=== PATIENT | male | born 2000 | race Caucasian/White ===

== ENCOUNTER 2023-03-13 16:41 | Outpatient (OUT) | payer BC, SELFPAY ==
--- NOTE | 2023-03-13 | XR_ITS ---
The [address] [address] Patient Name: MONICA GREEN MRN: [id number] date: 2000 Sex: M Assigned Patient Location: [facility] Current Patient Location: [facility] Accession/Order Number: [id number] Exam Date: 03/13/2023 17:10 Report Date: 03/13/2023 17:34 At the request of: SHAIKH BARRY Procedure: XR femur RT 2V EXAM: XR femur RT 2V HISTORY: RIGHT D16.21 COMPARISON: None. TECHNIQUE: AP and lateral views of the right femur were obtained. FINDINGS: There is no evidence of an acute fracture or dislocation. The joint spaces are intact proximally and distally. A focal osteophyte arises from the posterior lateral aspect of the distal femoral metaphysis. No other osseous abnormality is identified. The soft tissues are intact. XR/XR femur RT 2V IMPRESSION: No acute fracture or dislocation. The joint spaces are intact. An osteophyte arises from the distal femoral metaphysis. Comparison with a previous study may be helpful in determining the chronicity of these findings. Electronically authenticated by: MARCIANO NGUYEN Date: 03/13/2023 17:34
--- NOTE | 2023-03-13 | XR_ITS ---
The [address] [address] Patient Name: MONICA GREEN MRN: [id number] date: 2000 Sex: M Assigned Patient Location: [facility] Current Patient Location: [facility] Accession/Order Number: [id number] Exam Date: 03/13/2023 17:10 Report Date: 03/13/2023 17:32 At the request of: SHAIKH BARRY Procedure: XR knee RT 3V EXAM: XR knee RT 3V HISTORY: OSTEOCHONDROMA OF RIGHT FEMUR COMPARISON: None. TECHNIQUE: 2 views of the right knee were obtained FINDINGS: There is no evidence of an acute fracture or dislocation. The joint spaces are intact. No osteochondral injury is identified. There is no evidence of a joint effusion. There is a focal osteophyte arising from the distal femoral metaphysis posterior medially, which may indicate an osteochondroma. No calcifications are seen in the soft tissues. XR/XR knee RT 3V IMPRESSION: No acute fracture or dislocation. The joint spaces are intact. An osteophyte arises from the distal femoral metaphysis, which may indicate an osteochondroma. If further evaluation is clinically indicated then perhaps a CT or MRI study of this region would be helpful. Electronically authenticated by: MARCIANO NGUYEN Date: 03/13/2023 17:32
== END 2023-03-13 16:42 | disposition home or self-care (01) ==
PROVIDERS: PCP Internal Medicine; Visit Provider Internal Medicine
DX: D16.21 Benign neoplasm of long bones of right lower limb (principal)
CPT/HCPCS: 73552; 73562

== ENCOUNTER 2024-02-17 15:45 | Outpatient (OUT) | payer OTHER, BC, SELFPAY ==
[2024-02-17 16:03] LABS: Basophils Percent Auto 0.3 % (0.2-2.0); Eosinophils Absolute Auto 0.1 10^3/uL (0.0-0.7); Eosinophils Percent Auto 1.8 % (0.9-7.0); Hematocrit 43.5 % (42.0-54.0); Hemoglobin 14.6 g/dL (14.0-18.0); Immature Granulocytes Abs Auto 0.01 10^3/uL (0.00-0.03); Immature Granulocytes Pct Auto 0.1 % (0.0-0.5); Lymphocytes Absolute Auto 2.6 10^3/uL (1.2-3.8); Lymphocytes Percent Auto 32.7 % (20.5-60.0); Mean Corpuscular HGB Conc 33.6 g/dL (29.9-35.2); Mean Corpuscular Hemoglobin 29.9 pg (25.9-34.0); Mean Corpuscular Volume 89.1 fL (80.0-94.0); Mean Platelet Volume 11.4 fL (9.5-13.5); Monocytes Absolute Auto 0.7 10^3/uL (0.3-0.8); Monocytes Percent Auto 9.4 % (1.7-12.0); Neutrophils Absolute Auto 4.4 10^3/uL (1.4-6.5); Neutrophils Percent Auto 55.7 % (43.0-75.0); Platelet Count 181 10^3/uL (150-450); Red Blood Count 4.88 10^6/uL (4.70-6.10); Red Cell Distribution Width 12.2 % (11.0-15.0); White Blood Count 7.8 10^3/uL (4.0-11.0)
[2024-02-17 16:49] LABS: Alanine Aminotransferase 32 U/L (16-63); Albumin Globulin Ratio 1.4; Albumin Level 4.2 g/dL (3.4-5.0); Alkaline Phosphatase 70 U/L (46-116); Anion Gap 11.7; Aspartate Amino Transferase 16 U/L (15-37); BUN Creatinine Ratio 14.9; Bilirubin Total 0.9 mg/dL (0.2-1.0); Chloride 102 mmol/L (98-107); Estimated GFR (African America >60 (>=60); Estimated GFR (Non-African Ame >60 (>=60); Globulin 2.9 g/dL; Glucose 101 mg/dL (74-106); Potassium 3.7 mmol/L (3.5-5.1); Sodium 139 mmol/L (136-145); Total Protein 7.1 g/dL (6.4-8.2)
[2024-02-19 14:10] LABS: Deamidated Gliadin Abs, IgA 2 units (0-19); Deamidated Gliadin Abs, IgG 2 units (0-19); Endomysial Antibody IgA Negative (Negative); Immunoglobulin A, Qn, Serum 81 mg/dL (90-386); t-Transglutaminase (tTG) IgA <2 U/mL (0-3); t-Transglutaminase (tTG) IgG <2 U/mL (0-5)
== END 2024-02-17 15:46 | disposition home or self-care (01) ==
LOC: LAB 15:45
PROVIDERS: PCP Internal Medicine; Visit Provider Internal Medicine
DX: K58.0 Irritable bowel syndrome with diarrhea (principal); R14.0 Abdominal distension (gaseous); R10.9 Unspecified abdominal pain
CPT/HCPCS: 36415; 80053; 82784; 85025; 86231; 86258; 86364

== ENCOUNTER 2024-02-25 16:35 | Outpatient (REF) | payer OTHER, BC, SELFPAY | END 2024-02-25 16:36 | disposition home or self-care (01) | LOC: LAB 16:35 | PROVIDERS: PCP Internal Medicine; Visit Provider Internal Medicine | DX: K58.0 Irritable bowel syndrome with diarrhea (principal); R14.0 Abdominal distension (gaseous); R10.9 Unspecified abdominal pain | CPT/HCPCS: 87338 ==

== ENCOUNTER 2024-03-16 19:53 | Emergency (ER) | payer OTHER, BC, SELFPAY ==
[2024-03-16 19:59] VITALS: BP 130/66; PULSE 70; TEMP 36.7; O2SAT 99; BMI 25.1
--- NOTE | 2024-03-16 20:12 | CT_ITS ---
The [address] [address] Patient Name: MONICA GREEN MRN: [id number] date: 2000 Sex: M Assigned Patient Location: ER Current Patient Location: Accession/Order Number: [id number] Exam Date: 03/16/2024 20:15 Report Date: 03/16/2024 21:35 At the request of: CHIN ODELL Procedure: CT head/brain wo/w con EXAM: CT head/brain wo/w con HISTORY: Right eye visual disturbance. TECHNIQUE: Axial CT scans through the head were obtained without and with IV administration of iodinated contrast. Dose reduction techniques were achieved by using: automated exposure control and/or adjustment of mA and /or kV according to patient size and/or use of iterative reconstruction technique. COMPARISON: None. FINDINGS: The cerebral hemispheres have normal white and saez matter and corticomedullary differentiation. To the limit of CT, the posterior fossa appears unremarkable. The ventricular system and cortical sulci are normal for the patient's age. No area of abnormal mass-effect or edema or intracranial hemorrhage. No area of pathologic contrast enhancement. The visualized orbits show no abnormality. The visualized paranasal sinuses show no air-fluid level. Mastoid air cells are clear. CT/CT head/brain wo/w con IMPRESSION: No acute intracranial process. The visualized orbits show no abnormality. Electronically authenticated by: FEMI JARRETT Date: 03/16/2024 21:35
--- NOTE | 2024-03-16 20:14 | ED.EYEPROB1 ---
HPI - Eye Problem General Chief complaint: Eye Problems Stated complaint: Visual Disturbance Time Seen by Provider: 03/16/24 20:02 Source: patient and family History of Present Illness HPI Narrative: 24-year-old male presents with his mother to the emergency department for blurred vision in his right eye only. He has had it for a week. Last night he vomited. He is not complaining of any headache or head trauma. He saw an law firm administrator today and he was told that he has some sort of growth in his eye and that he will need to see a specialist, apparently a retina specialist. This is being arranged by the law firm administrator. He also saw his PCP today. An MRI is being planned. He has no weakness or numbness in his extremities. Related Data Allergies Allergy/AdvReac Type Severity Reaction Status Date / Time No Known Drug Allergies Allergy Verified 03/16/24 20:10 Review of Systems ROS Narrative A ten point review of systems is negative except as noted above. Exam Narrative Exam Narrative: Nurses note and vital signs reviewed and patient is not hypoxic. General: The patient appears well and in no apparent distress. Patient is resting comfortably on cart. Skin: Warm, dry, no pallor noted. There is no rash noted. Head: Normocephalic, atraumatic Eye: Normal conjunctiva, no drainage the left eye appears normal. The right pupil is dilated from the law firm administrator office today. Ears, Nose, Mouth, and Throat: oral mucosa is moist. Nares patent. Cardiovascular: Regular Rate and Rhythm Respiratory: Patient is in no distress, no accessory muscle use, lungs are clear to auscultation, no wheezing, rales or rhonchi Back: non-tender GI: Soft and nontender Musculoskeletal: The patient has no evidence of calf tenderness, no pitting edema, symmetrical pulses noted bilaterally Neurological: Awake alert and oriented. Upper and lower extremity strength intact. Extraocular movements are intact. Psychiatric: Cooperative Constitutional Vital Signs, click to edit/add: Last Vital Signs Temp 98.1 F 03/16/24 19:59 Pulse 70 03/16/24 19:59 Resp 16 03/16/24 19:59 BP 130/66 03/16/24 19:59 Pulse Ox 99 03/16/24 19:59 O2 Del Method Room Air 03/16/24 19:59 Course Vital Signs Vital signs: Vital Signs Temperature 98.1 F 03/16/24 19:59 Pulse Rate 70 03/16/24 19:59 Respiratory Rate 16 03/16/24 19:59 Blood Pressure 130/66 03/16/24 19:59 Pulse Oximetry 99 03/16/24 19:59 Oxygen Delivery Method Room Air 03/16/24 19:59 Temperature 98.1 F 03/16/24 19:59 Pulse Rate 70 03/16/24 19:59 Respiratory Rate 16 03/16/24 19:59 Blood Pressure 130/66 03/16/24 19:59 Pulse Oximetry 99 03/16/24 19:59 Oxygen Delivery Method Room Air 03/16/24 19:59 MDM - Eye Problem MDM Narrative Medical decision making narrative: CT brain with and without contrast is negative. Workup will progress with MRI as ordered by PCP and he is going to be following up with the retina specialist. Findings are discussed with the patient and his mother. Differential Diagnosis Differential diagnosis: Likely other (Intracranial mass, retinal mass) Discharge Plan Discharge Stand Alone Forms: Portal Instructions Chief Complaint: Eye Problems Clinical Impression: Vision changes Patient Disposition: Home, Self-Care Time of Disposition Decision: 21:43 Condition: Good Mode of Transportation: Private Vehicle Print Language: Maldivian Instructions: Blurred Vision (ED) Additional Instructions: Follow-up with Dr. Abernathy and the video specialist Referrals: Juan Antonio Abernathy MD [Primary Care Provider] - 1 week
== END 2024-03-16 22:18 | disposition home or self-care (01) ==
PROVIDERS: Emergency Provider Emergency Medicine; PCP Family Medicine
DX: H53.8 Other visual disturbances (principal)
CPT/HCPCS: 70470; 99284; Q9967

== ENCOUNTER 2024-03-18 12:34 | Outpatient (OUT) | payer OTHER, BC, SELFPAY ==
[2024-03-18 14:08] LABS: Erythrocyte Sedimentation Rate 7 mm/hr (<=15)
[2024-03-19 04:08] LABS: Rheumatoid Factor (RF) 10.2 IU/mL (<14.0)
[2024-03-19 06:10] LABS: HIV Ab/p24 Ag Screen Non Reactive (Non Reactive)
[2024-03-19 08:13] LABS: Varicella-Zoster V Ab, IgG <135 index (Immune >165)
[2024-03-19 12:12] LABS: Rapid Plasma Reagin, Quant Non Reactive titer (NonRea<1:1)
[2024-03-19 13:13] LABS: Angiotensin-Converting Enzyme 48 U/L (14-82); Complement, Total (CH50) 48 U/mL (>41)
[2024-03-19 15:09] LABS: ANA Direct Negative (Negative)
[2024-03-20 17:09] LABS: QuantiFERON-TB Gold Plus Negative (Negative)
== END 2024-03-18 12:35 | disposition home or self-care (01) ==
LOC: LAB 12:36
PROVIDERS: PCP Family Medicine
DX: H30.93 Unspecified chorioretinal inflammation, bilateral (principal)
CPT/HCPCS: 36415; 82164; 85652; 86038; 86162; 86431; 86480; 86592; 86787; 87389

== ENCOUNTER 2024-04-23 16:33 | Outpatient (OUT) | payer OTHER, BC, SELFPAY ==
--- OUTSIDE RECORDS SUMMARY | 2024-04-23 16:39 | XMS_ITS | CCD ---
Author Organization [facility] Care Team Providers Care Return To Service Inspector Name Role Phone DR SCOTT ROMANO Admitting Yazan ROMANO, DR CSOTT [employer] Unavailable DR SCOTT RMOANO Attending Unavailable KAHLIL, DR MONICA Blake [facility] Unavailable LEIDA, DR ROXANE [employer] Unavailable JOSESITO GOVEA Consult[employer] Unavailable SHAIKH REDDY Attending Unavailable SHAIKH REDDY Attending Unavailable Paul Rodrigues, December Attending Unavailable Paul Rodrigues, December Referring Unavailable Allergies Allergy Classification Reported Allergen(s) Allergy Type Date of Onset Reaction(s) Facility (1 source) Acetaminophen / HYDROcodone Drug Allergy 04-14-2016 [facility] Problems Problem Classification Problem Date Documented Date Episodic/Chronic Allergic reactions (1 source) Dermatitis, unspecified; Translations: [DERMATITIS UNSPECIFIED] Onset: 02-08-2021 Episodic Inflammation; infection of eye (except that caused by tuberculosis or sexually transmitteddisease) (1 source) Unspecified chorioretinal inflammation, bilateral; 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 Other eye disorders (1 source) Other disorders of optic disc, bilateral; 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 Chronic Other upper respiratory infections (4 sources) Acute pharyngitis, unspecified; Translations: [ACUTE PHARYNGITIS UNSPECIFIED] Onset: 02-06-2021 Episodic Retinal detachments; defects; vascular occlusion; and retinopathy (1 source) Retinal neovascularization, unspecified, right eye; 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, right eye] 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-2024 Chronic Unclassified (1 source) CONTACT W/AND (SUSP) EXPOS COVID-19; Translations: [CONTACT W/AND (SUSP) EXPOS COVID-19] Onset: 02-08-2021 Results Test Name Value Interpretation Reference Range Facil ity CBC AUTO DIFFon 02-06-2021 BASO # 0.0 103/ul Normal 0.0-0.1 [facility] Comment on above: Performed By: #### C BC #### [facility] [address] [id number] Mandeep Ariadna Basophils/100 WBC (Bld) 0.1 % Critically low 0.2-2.0 [facility] Comment on above: Performed By: #### C BC #### [facility] [address] [place], [place] [id number] Mandeep Ariadna EO # 0.2 103/ul Normal 0.0-0.7 [facility] Comment on above: Performed By: #### C BC #### [facility] [address] [place], [place] [id number] Mandeep Ariadna Eosinophils/100 WBC (Bld) 1.3 % Normal 0.9-7.0 [facility] Comment on above: Performed By: #### C BC #### [facility] [address] [place] [address] Mandeep Ariadna Erythrocyte distribution width (RBC) [Ratio] 12.6 % Normal 11.0-15.0 [facility] Comment on above: Performed By: #### C BC #### [facility] [address] [place], [place] [id number] Mandeep Ariadna Hematocrit (Bld) [Volume fraction] 49.3 % Normal 42.0-54.0 [facility] Comment on above: Performed By: #### C BC #### [facility] [address] [place], [place] [id number] Mandeep Ariadna Hemoglobin (Bld) [Mass/Vol] 16.9 g/dL Normal 14.0-18.0 [facility] Comment on above: Performed By: #### C BC #### [facility] [address] [place], [place] [address] Mandeep Ariadna IG # 0.06 10e3/ul Critically high 0.00-0.03 [facility] Comment on above: Performed By: #### C BC #### [facility] [address] [place], [place] [address] Mandeep Ariadna IG % 0.4 % Normal 0.0-0.5 [facility] Comment on above: Performed By: #### C BC #### [facility] [address] [place], [place] [id number] Mandeepelizabeth Rosenthal LYMPH # 1.5 103/ul Normal 1.2-3.8 [facility] Comment on above: Performed By: #### C BC #### [facility] [address] [place], [place] [id number] Mandeepelizabeth Rosenthal Lymphocytes/100 WBC (Bld) 10.6 % Critically low 20.5-60.0 [facility] Comment on above: Performed By: #### C BC #### [facility] [address] [place], [place] [id number] Mandeep Rosenthal MANUAL DIFF REQ NO Normal [facility] Comment on above: Performed By: #### C BC #### [facility] [address] [place], [place] [id number] Mandeep Rosenthal MCH (RBC) [Entitic mass] 30.6 pg Normal 25.9-34.0 [facility] Comment on above: Performed By: #### C BC #### [facility] [address] [place], [place] [id number] Mandeep Rosenthal MCHC (RBC) [Mass/Vol] 34.3 g/dL Normal 29.9-35.2 [facility] Comment on above: Performed By: #### C BC #### [facility] [address] [place], [place] [id number] Mandeepelizabeth Rosenthal MCV (RBC) [Entitic vol] 89.2 fL Normal 80.0-94.0 [facility] Comment on above: Performed By: #### C BC #### [facility] [address] [place], [place] [address] Mandeep Ariadna MONO # 1.3 103/ul Critically high 0.3-0.8 [facility] Comment on above: Performed By: #### C BC #### [facility] [address] [place], [place] [address] Mandeep Ariadna Monocytes/100 WBC (Bld) 8.9 % Normal 1.7-12.0 [facility] Comment on above: Performed By: #### C BC #### [facility] [address], [place] [address] Mandeep Rosenthal NEUT # 11.1 103/ul Critically high 1.4-6.5 [facility] Comment on above: Performed By: #### C BC #### [facility] [address] [place], [place] [address] Mandeep Rosenthal Neutrophils/100 WBC (Bld) 78.7 % Critically high 43.0-75.0 [facility] Comment on above: Performed By: #### C BC #### [facility] [address] [place], [place] [address] Mandeep Rosenthal Platelet mean volume (Bld) [Entitic vol] 11.3 fL Normal 9.5-13.5 [facility] Comment on above: Performed By: #### C BC #### [facility] [address] [place], [place] [address] Mandeep Rosenthal PLT 185 103/ul Normal 150-450 [facility] Comment on above: Performed By: #### C BC #### [facility] [address] [place], [place] [address] Mandeep Rosenthal RBC 5.53 106/ul Normal 4.70-6.10 [facility] Comment on above: Performed By: #### C BC #### [facility] [address] [place], [place] [address] Mandeep Rosenthal WBC 14.1 103/ul Critically high 4.0-11.0 [facility] Comment on above: Performed By: #### C BC #### [facility] [address] [place], [place] [id number] Mandeep Rosenthal CULTURE THROATon 02-06-2021 CULTURE THROAT Culture Observations : NORMAL RESPIRATORY MERCEDES. Normal [facility] Comment on above: Performed By: #### T HRTCX, SSCRN #### [facility] [address] [place], [place] [address] Mandeep Rosenthal Covid-19 PCR (CVDTB)on 01-18 SARS-CoV-2 (COVID-19) RNA SOY+probe Ql (Unsp spec) Not detected Normal NOT DETECTED [facility] Comment on above: Result Comment: This test is not yet approved or cleared by the [place] FDA. When there are no FDA-approved or cleared tests available, and other criteria are met, FDA can make tests available under an emergency access mechanism called an Emergency Use Authorization (EUA). The EUA for this test is supported by the [place] of Health and Human Service's (HHS's) declaration that circumstances exist to justify the emergency use of in vitro diagnostics for the detection and/or diagnosis of the virus that causes COVID-19. This EUA will remain in effect (meaning this test can be used) for the duration of the COVID-19 declaration justifying emergency of IVDs, unless it is terminated or revoked by FDA (after which the test may no longer be used). When diagnostic testing is negative, the possibility of a false negative should be considered in the context of a patient's recent exposures and the presence of clinical signs and symptoms consistent with SARS-CoV-2. Performed By: #### C VDTBH #### [facility] [address] [place] [address] Mandeep Rosenthal MONOon 02-06-2021 Monocytes (Bld) [#/Vol] Negative Normal NEGATIVE [facility] Comment on above: Performed By: #### M SHARON #### [facility] [address] [place], [place] [address] Mandeep Rosenthal PROF 14(COMP METB)on 021 Albumin [Mass/Vol] 4.2 g/dL Normal 3.5-5.0 [facility] Comment on above: Performed By: #### C MP #### [facility] [address] [place], [place] [address] Mandeepelizabeth Rosenthal Albumin/Globulin [Mass ratio] 1.1 {ratio} Normal [facility] Comment on above: Performed By: #### C MP #### [facility] [address] [place], [place] [address] Mandeep Ariadna ALP [Catalytic activity/Vol] 85 U/L Normal 38-126 [facility] Comment on above: Performed By: #### C MP #### [facility] [address] [place], [place] [address] Mandeep Ariadna ALT [Catalytic activity/Vol] 24 U/L Normal 21-72 [facility] Comment on above: Performed By: #### C MP #### [facility] [address] [place] [address] Mandeep Ariadna Anion gap [Moles/Vol] 14.2 mmol/L Normal [facility] Comment on above: Performed By: #### C MP #### [facility] [address] [address] Mandeep Ariadna AST [Catalytic activity/Vol] 15 U/L Critically low 17-59 [facility] Comment on above: Performed By: #### C MP #### [facility] [address] [place] [address] Mandeep Ariadna Bilirubin [Mass/Vol] 1.1 mg/dL Normal 0.2-1.3 [facility] Comment on above: Performed By: #### C MP #### [facility] [address] [place] [address] Mandeep Ariadna Calcium [Mass/Vol] 9.7 mg/dL Normal 8.4-10.2 [facility] Comment on above: Performed By: #### C MP #### [facility] [address] [place] [address] Mandeep Ariadna Chloride [Moles/Vol] 104 mmol/L Normal 98-107 [facility] Comment on above: Performed By: #### C MP #### [facility] [address] [place] [address] Mandeep Ariadna CO2 [Moles/Vol] 25.1 mmol/L Normal 22.0-30.0 [facility] Comment on above: Performed By: #### C MP #### [facility] [address] [place], [place] [address] Mandeep Ariadna Creatinine [Mass/Vol] 1.18 mg/dL Normal 0.66-1.25 [facility] Comment on above: Performed By: #### C MP #### [facility] [address] [place], [place] [address] Mandeep Ariadna EGFR-AF NICARAGUAN >60 Normal >=60 [facility] Comment on above: Performed By: #### C MP #### [facility] [address] [place], [place] [address] Mandeep Ariadna EGFR-NON AF NICARAGUAN >60 Normal >=60 [facility] Comment on above: Performed By: #### C MP #### [facility] [address] [place], [place] [address] Mandeep Ariadna Globulin (S) [Mass/Vol] 3.8 g/dL Normal [facility] Comment on above: Performed By: #### C MP #### [facility] [address] [id number] Mandeep Ariadna Glucose [Mass/Vol] 92 mg/dL Normal 74-106 [facility] Comment on above: Performed By: #### C MP #### [facility] [address] [address] Mandeep Ariadna Potassium [Moles/Vol] 4.3 mmol/L Normal 3.4-5.0 [facility] Comment on above: Performed By: #### C MP #### [facility] [address] [id number] Mandeep Ariadna Protein [Mass/Vol] 8.0 g/dL Normal 6.1-8.2 [facility] Comment on above: Performed By: #### C MP #### [facility] [address] [place], [place] [address] Mandeep Ariadna Sodium [Moles/Vol] 139 mmol/L Normal 137-145 [facility] Comment on above: Performed By: #### C MP #### [facility] [address] [id number] Mandeep Ariadna Urea nitrogen [Mass/Vol] 14.0 mg/dL Normal 9.0-20.0 [facility] Comment on above: Performed By: #### C MP #### [facility] [address] [id number] Mandeep Ariadna Urea nitrogen/Creatinine [Mass ratio] 11.9 mg/mg Normal [facility] Comment on above: Performed By: #### C MP #### [facility] [address] [place] [address] Mandeep Rosenthal RAPID COVID-19 ANTIGENon EUA Statement SEE BELOW Normal [facility] Comment on above: Result Comment: This test has not been FDA cleared or approved, but has been authorized by the FDA under an Emergency Use Authorization (EUA) for use by authorized laboratories certified under CLIA that meet the requirements to perform moderate or high complexity testing. This test has been authorized only for the detection of proteins from SARS-CoV-2, not for any other viruses or pathogens. The emergency use of this test is authorized for the duration of the declaration that circumstances exist justifying the authorization of emergency use of in vitro diagnostic tests for detection and/or diagnosis of Covid-19 under section 564(b)(1) of the Act, 21 U.S.C. 360bbb-3(b)(1), unless the declaration is terminated or authorization is revoked sooner. Performed By: #### C VDAG #### [facility] [address] [place] [address] Mandeep Ariadna SARS-CoV-2 (COVID-19) RNA SOY+probe Ql (Unsp spec) Negative Normal NEGATIVE [facility] Comment on above: Result Comment: Nega tive results are presumptive. They do not preclude infection and should not be used as the sole basis for treatment decisions. Additional confirmatory testing by a molecular method should be considered. Performed By: #### C VDAG #### [facility] [address] [place] [address] Mandeep Rosenthal STREPT SCREENon 02-06-2021 STREP SCREEN A Negative Normal NEGATIVE [facility] Comment on above: Performed By: #### T HRTCX, SSCRN #### [facility] [address] [place] [address] Mandeep Rosenthal XR CHEST 1 Von 02-06-2021 XR CHEST 1 V EXAMINATION: XR CHES T 1 V HISTORY: COUGH COMPARISON: No relevant comparison available. FINDINGS: LUNGS: No significant pulmonary parenchymal abnormalities. VASCULATURE: No increased pulmonary vasculature. PLEURA: No pneumothorax, effusion, or pleural thickening. CARDIAC: No cardiomegaly or cardiac silhouette abnormality. MEDIASTINUM: No visible mass or adenopathy. BONES: No fracture or visible bone lesion. OTHER: Negative. IMPRESSION: 1. No acute cardiopulmonary process. Electronically authenticated by: ROXANE CASAREZ Date: 2021-02-06 08:35 Normal [facility] Encounters Encounter Date Encounter Type Care Provider Facility Start: 03-26-2024 ambulatory Facility:R[facility] Suggs Start: 03-18-2024 [facility] Start: 03-18-2024 ambulatory May [facility]ac[facility] Start: 02-17-2024 End: 02-17-2024 ambulatory SHAIKH GATITOMEGHANA Not Available Start: 12-16-2023 End: 12-16-2023 ambulatory SHAIKH BARRY Not Available Start: 02-06-2021 End: 02-06-[address] SCOTT ROMANO Facility:[facility] Procedures Date Procedure Procedure Detail Performing Clinician Start: 03-18-2024 Bevacizumab injection M ay [facility] Start: 03-18-2024 Computerized ophthal brea [facility] retina [facility] Start: 03-18-2024 Fundus Photos No Charge [facility] Start: 03-18-2024 Intravitreal njx pharmacologic agt spx Decemberr [facility] Payers Date Payer Category Payer Private Health Insurance [id number] 2022 Unknown [id number] 2019 Unknown [id number] 2001 Unknown [id number] [id number] [id number] 2001 Unknown [id number] [id number] [id number] 2001 Unknown [id number] 1971 Unknown [id number] [id number] [id number] Summary Purpose Family History No Family History Records FoundNo Family History Records FoundNo Family History Records FoundNo Family History Records Found Advance Directives No Advanced Directives Records FoundNo Advanced Directives Records FoundNo Advanced Directives Records FoundNo Advanced Directives Records Found Additional Source Comments (unrecognized sect ion and content) No Status Records FoundNo Status Records FoundNo Status Records FoundNo Status Records Found INFORMATION SOURCE (unrecogn ized section and content) DATE CREATED AUTHOR 04/14/2021 [facility] DATE CREATED AUTHOR AUTHOR'S ORGANIZ ATION 02/18/2024 [facility] EP[facility] DATE CREATED AUTHOR AUTHOR'S ORGANIZ ATION 03/22/2024 [facility] DATE CREATED AUTHOR AUTHOR'S ORGANIZ ATION 03/29/2024 [facility] FOR RECORDS PERTAINING TO PATIENTS WHO ARE OR HAVE BEEN ENROLLED IN A CHEMICAL DEPENDENCY/SUBSTANCEABUSE PROGRAM, SOME INFORMATION MAY BE OMITTED. This clinical summary was aggregated from multiple sources. Caution should be exercised in using it in the provision of clinical care. This summary normalizes information from multiple sources, and as a consequence, information in this document may materially change the coding, format and clinical context of patient data. In addition, data may be omitted in some cases. CLINICAL DECISIONS SHOULD BE BASED ON THE PRIMARY CLINICAL RECORDS. [employer] provides no warranty or guarantee of the accuracy or completeness of information in this document.
[2024-04-23 17:53] LABS: C Reactive Protein <0.50 mg/dL (<=0.50)
[2024-04-23 18:27] LABS: Erythrocyte Sedimentation Rate 16 mm/hr (<=15)
[2024-04-25 10:09] LABS: Complement C3, Serum 122 mg/dL (82-167); Complement C4, Serum 24 mg/dL (12-38)
[2024-04-28 08:11] LABS: Anti-MPO Antibodies <0.2 units (0.0-0.9); Anti-PR3 Antibodies <0.2 units (0.0-0.9); Cytoplasmic (C-ANCA) <1:20 titer (Neg:<1:20); Perinuclear (P-ANCA) <1:20 titer (Neg:<1:20)
== END 2024-04-23 16:34 | disposition home or self-care (01) ==
PROVIDERS: PCP Family Medicine; Visit Provider Internal Medicine
DX: K58.0 Irritable bowel syndrome with diarrhea (principal); D89.9 Disorder involving the immune mechanism, unspecified
CPT/HCPCS: 36415; 83516; 85652; 86037; 86140; 86160; 86698

== ENCOUNTER 2025-04-30 13:31 | Outpatient (OUT) | payer BC, SELFPAY ==
--- OUTSIDE RECORDS SUMMARY | 2025-04-30 13:46 | XMS_ITS | CCD ---
Author Organization [facility] Care Team Providers Care Retail Store Assistant Name Role Phone DR SCOTT ROMANO Admitting Yazan ROMANO, DR SCOTT De La [employer] Consult[employer] Unavailable DR SCOTT ROMANO Attending Unavailable KAHLIL, DR MONICA Blake Primary Care Unavailable LEIDA, DR ROXANE De La [employer] Consult[employer] Unavailable JOSESITO GOVEA Consulting Unavailable SHAIKH REDDY Attending Unavailable SHAIKH REDDY Attending Unavailable Paul Rodrigues, December Attending Unavailable Paul Rodrigues, December Referring Unavailable Allergies Allergy Classification Reported Allergen(s) Allergy Type Date of Onset Reaction(s) Facility (1 source) Acetaminophen / HYDROcodone Drug Allergy 04-14-2016 [facility] Repository Problems Problem Classification Problem Date Documented [...] 02-06-2021 BASO # 0.0 103/ul Normal 0.0-0.1 [facility] Comment on above: Performed By: #### C BC #### [facility] [address] [id number] Mandeep Ariadna Basophils/100 WBC (Bld) 0.1 % Critically low 0.2-2.0 [facility] Comment on above: Performed By: #### C BC #### [facility] [address] [place], [place] [id number] Mandeep Ariadna EO # 0.2 103/ul Normal 0.0-0.7 [facility] Comment on above: Performed By: #### C BC #### [facility] [address] [place], [place] [id number] Mandeep Ariadna Eosinophils/100 WBC (Bld) 1.3 % Normal 0.9-7.0 [facility] Comment on above: Performed By: #### C BC #### [facility] [address] [place] [address] Mandeep Ariadna Erythrocyte distribution width (RBC) [Ratio] 12.6 % Normal 11.0-15.0 [facility] Comment on above: Performed By: #### C BC #### [facility] [address] [place], [place] [id number] Mandeep Ariadna Hematocrit (Bld) [Volume fraction] 49.3 % Normal 42.0-54.0 [facility] Comment on above: Performed By: #### C BC #### [facility] [address] [place], [place] [id number] Mandeep Ariadna Hemoglobin (Bld) [Mass/Vol] 16.9 g/dL Normal 14.0-18.0 [facility] Comment on above: Performed By: #### C BC #### [facility] [address] [place], [place] [id number] Mandeep Ariadna IG # 0.06 10e3/ul Critically high 0.00-0.03 [facility] Comment on above: Performed By: #### C BC #### [facility] [address] [place], [place] [id number] Mandeep Ariadna IG % 0.4 % Normal 0.0-0.5 [facility] Comment on above: Performed By: #### C BC #### [facility] [address] [place], [place] [id number] Mandeepelizabeth Rosenthal LYMPH # 1.5 103/ul Normal 1.2-3.8 [facility] Comment on above: Performed By: #### C BC #### [facility] [address] [place], [place] [id number] Mandeepelizabeth Rosenthal Lymphocytes/100 WBC (Bld) 10.6 % Critically low 20.5-60.0 [facility] Comment on above: Performed By: #### C BC #### [facility] [address] [place], [place] [id number] Mandeep Rosenthal MANUAL DIFF REQ NO Normal [facility] Comment on above: Performed By: #### C BC #### [facility] [address] [place], [place] [id number] Mandeep Rosenthal MCH (RBC) [Entitic mass] 30.6 pg Normal 25.9-34.0 [facility] Comment on above: Performed By: #### C BC #### [facility] [address] [place], [place] [phone] Mnadeep Rosenthal MCHC (RBC) [Mass/Vol] 34.3 g/dL Normal 29.9-35.2 [facility] Comment on above: Performed By: #### C BC #### [facility] [address] [place], [place] [id number] Mandeepelizabeth Rosenthal MCV (RBC) [Entitic vol] 89.2 fL Normal 80.0-94.0 [facility] Comment on above: Performed By: #### C BC #### [facility] [address] [place], [place] [id number] Mandeep Ariadna MONO # 1.3 103/ul Critically high 0.3-0.8 [facility] Comment on above: Performed By: #### C BC #### [facility] [address] [place], [place] [phone] Mandeep Ariadna Monocytes/100 WBC (Bld) 8.9 % Normal 1.7-12.0 [facility] Comment on above: Performed By: #### C BC #### [facility] [address] [place], [place] [address] Mandeep Roesnthal NEUT # 11.1 103/ul Critically high 1.4-6.5 [facility] Comment on above: Performed By: #### C BC #### [facility] [address] [place], [place] [id number] Mandeep Rosenthal Neutrophils/100 WBC (Bld) 78.7 % Critically high 43.0-75.0 [facility] Comment on above: Performed By: #### C BC #### [facility] [address] [place], [place] [id number] Mandeep Rosenthal Platelet mean volume (Bld) [Entitic vol] 11.3 fL Normal 9.5-13.5 [facility] Comment on above: Performed By: #### C BC #### [facility] [address] [place], [place] [id number] Mandeep Rosenthal PLT 185 103/ul Normal 150-450 [facility] Comment on above: Performed By: #### C BC #### [facility] [address] [place], [place] [id number] Mandeep Rosenthal RBC 5.53 106/ul Normal 4.70-6.10 [facility] Comment on above: Performed By: #### C BC #### [facility] [address] [place], [place] [id number] Mandeep Rosenthal WBC 14.1 103/ul Critically high 4.0-11.0 [facility] Comment on above: Performed By: #### C BC #### [facility] [address] [place], [place] [id number] Mandeep Rosenthal CULTURE THROATon 02-06-2021 CULTURE THROAT Culture Observations : NORMAL RESPIRATORY MERCEDES. Normal [facility] Comment on above: Performed By: #### T HRTCX, SSCRN #### [facility] [address] [place], [place] [id number] Mandeep Rosenthal Covid-19 PCR (CVDTB)on 01-18 SARS-CoV-2 (COVID-19) RNA SOY+probe Ql (Unsp spec) Not detected Normal NOT DETECTED [facility] Comment on above: Result Comment: This test is not yet approved or cleared by the [place] FDA. When there are no FDA-approved or cleared tests available, and other criteria are met, FDA can make tests available under an emergency access mechanism called an Emergency Use Authorization (EUA). The EUA for this test is supported by the Scrap Drop Crane Operator of Health and Human Service's (HHS's) declaration [...] SARS-CoV-2. Performed By: #### C VDTBH #### [facility] [address] [place] [address] Mandeep Rosenthal MONOon 02-06-2021 Monocytes (Bld) [#/Vol] Negative Normal NEGATIVE [facility] Comment on above: Performed By: #### M SHARON #### [facility] [address] [place], [place] [id number] Mandeep Rosenthal PROF 14(COMP METB)on 021 Albumin [Mass/Vol] 4.2 g/dL Normal 3.5-5.0 [facility] Comment on above: Performed By: #### C MP #### [facility] [address] [place], [place] [id number] Mandeepelizabeth Rosenthal Albumin/Globulin [Mass ratio] 1.1 {ratio} Normal [facility] Comment on above: Performed By: #### C MP #### [facility] [address] [place], [place] [phone] Mandeep Ariadna ALP [Catalytic activity/Vol] 85 U/L Normal 38-126 [facility] Comment on above: Performed By: #### C MP #### [facility] [address] [place], [place] [id number] Mandeep Ariadna ALT [Catalytic activity/Vol] 24 U/L Normal 21-72 [facility] Comment on above: Performed By: #### C MP #### [facility] [address] [place] [address] Mandeep Ariadna Anion gap [Moles/Vol] 14.2 mmol/L Normal [facility] Comment on above: Performed By: #### C MP #### [facility] [address] [address] Mandeep Ariadna AST [Catalytic activity/Vol] 15 U/L Critically low 17-59 [facility] Comment on above: Performed By: #### C MP #### [facility] [address] [place] [address] Mandeep Ariadna Bilirubin [Mass/Vol] 1.1 mg/dL Normal 0.2-1.3 [facility] Comment on above: Performed By: #### C MP #### [facility] [address] [place] [address] Mandeep Ariadna Calcium [Mass/Vol] 9.7 mg/dL Normal 8.4-10.2 [facility] Comment on above: Performed By: #### C MP #### [facility] [address] [place] [address] Mandeep Ariadna Chloride [Moles/Vol] 104 mmol/L Normal 98-107 [facility] Comment on above: Performed By: #### C MP #### [facility] [address] [place] [address] Mandeep Ariadna CO2 [Moles/Vol] 25.1 mmol/L Normal 22.0-30.0 [facility] Comment on above: Performed By: #### C MP #### [facility] [address] [place], [place] [address] Mandeep Ariadna Creatinine [Mass/Vol] 1.18 mg/dL Normal 0.66-1.25 [facility] Comment on above: Performed By: #### C MP #### [facility] [address] [place], [place] [address] Mandeep Ariadna EGFR-AF TURKISH >60 Normal >=60 [facility] Comment on above: Performed By: #### C MP #### [facility] [address] [place], [place] [address] Mandeep Ariadna EGFR-NON AF TURKISH >60 Normal >=60 [facility] Comment on above: Performed By: #### C MP #### [facility] [address] [place], [place] [address] Mandeep Ariadna Globulin (S) [Mass/Vol] 3.8 g/dL Normal [facility] Comment on above: Performed By: #### C MP #### [facility] [address] [id number] Mandeep Ariadna Glucose [Mass/Vol] 92 mg/dL Normal 74-106 [facility] Comment on above: Performed By: #### C MP #### [facility] [address] [address] Mandeep Ariadna Potassium [Moles/Vol] 4.3 mmol/L Normal 3.4-5.0 [facility] Comment on above: Performed By: #### C MP #### [facility] [address] [id number] Mandeep Ariadna Protein [Mass/Vol] 8.0 g/dL Normal 6.1-8.2 [facility] Comment on above: Performed By: #### C MP #### [facility] [address] [place], [place] [address] Mandeep Ariadna Sodium [Moles/Vol] 139 mmol/L Normal 137-145 [facility] Comment on above: Performed By: #### C MP #### [facility] [address] [id number] Mandeep Ariadna Urea nitrogen [Mass/Vol] 14.0 mg/dL Normal 9.0-20.0 [facility] Comment on above: Performed By: #### C MP #### [facility] [address] [id number] Mandeep Ariadna Urea nitrogen/Creatinine [Mass ratio] 11.9 mg/mg Normal [facility] Comment on above: Performed By: #### C MP #### [facility] [address] [place] [address] Mandeep Rosenthal RAPID COVID-19 ANTIGENon EUA Statement SEE BELOW Normal [facility] Comment on above: Result Comment: This [...] sooner. Performed By: #### C VDAG #### [facility] [address] [place] [address] Mandeep Ariadna SARS-CoV-2 (COVID-19) RNA SOY+probe Ql (Unsp spec) Negative Normal NEGATIVE [facility] Comment on above: Result Comment: Nega tive results are presumptive. They do not preclude infection and should not be used as the sole basis for treatment decisions. Additional confirmatory testing by a molecular method should be considered. Performed By: #### C VDAG #### [facility] [address] [place] [address] Mandeep Rosenthal STREPT SCREENon 02-06-2021 STREP SCREEN A Negative Normal NEGATIVE [facility] Comment on above: Performed By: #### T HRTCX, SSCRN #### [facility] [address] [place] [address] Mandeep Rosenthal XR CHEST 1 Von 02-06-2021 [...] by: ROXANE CASAREZ Date: 2021-02-06 08:35 Normal [facility] Encounters Encounter Date Encounter Type Care Provider Facility Start: 03-26-2024 ambulatory Facility:Robe Suggs Start: 03-18-2024 Office outpatient ne w 45 minutes [facility] Start: 03-18-[address] [facility] Start: 02-17-2024 End: 02-17-2024 ambulatory SHAIKH GATITOMEGHANA Not Available Start: 12-16-2023 End: 12-16-2023 ambulatory SHAIKH BARRY Not Available Start: 02-06-2021 End: 02-06-[address] SCOTT ROMANO Facility:[facility]1 Procedures Date Procedure Procedure Detail Performing Clinician Start: 03-18-2024 Bevacizumab injection M ay [facility] Start: 03-18-2024 Computerized ophthal brea imaging retina [facility] Start: 03-18-2024 Fundus Photos No Charge [facility] Start: 03-18-2024 [facility]real n[facility]x [facility] Payers Date Payer Category Payer Private Health Insurance [id number] 2022 Unknown [id number] 2019 Unknown [id number] 2001 Unknown [id number] [id number] 2001 Unknown [id number] [id number] [id number] 2001 Unknown [id number] 1971 Unknown [id number] [id number] [id number] Summary Purpose Family History No Family History [...] DATE CREATED AUTHOR AUTHOR'S ORGANIZ ATION 02/18/2024 [facility] EPIC DATE CREATED AUTHOR AUTHOR'S ORGANIZ ATION 03/22/2024 [facility] DATE CREATED AUTHOR AUTHOR'S ORGANIZ ATION 03/29/2024 [facility] FOR RECORDS PERTAINING TO PATIENTS WHO ARE [...] BE BASED ON THE PRIMARY CLINICAL RECORDS. [employer] provides no warranty or guarantee of the accuracy or completeness of information in this document.
== END 2025-04-30 13:32 | disposition home or self-care (01) ==
LOC: LAB 13:36
PROVIDERS: PCP Family Medicine; Visit Provider Family Medicine
DX: H30.91 Unspecified chorioretinal inflammation, right eye (principal)
CPT/HCPCS: 36415; 83090

== ENCOUNTER 2025-06-23 12:59 | Outpatient (OUT) | payer BC, SELFPAY ==
--- OUTSIDE RECORDS SUMMARY | 2025-06-18 12:45 | XMS_ITS | Encounter Summary ---
Author Organization [facility] Address [address] [place] [address] Care Team Providers Care Musical Instruments Assembler Name Role Phone Unavailable Primary Care Provider Unavailabl e Source Comments In the event this information is protected by the Federal Confidentiality of Alcohol and Drug AbusePatient Records regulations: The Federal rules restrict any use of the information to criminally investigate or prosecute any alcohol or drug abuse patient.[facility] Reason for Referral * MRI/CT (Routine) - New RequestSpecialtyDiagnoses / ProceduresReferred By ContactReferred To ContactCT IMAGING Diagnoses Choroiditis of both eyes Procedures CT CHEST WO IVCON DIAGNOSTIC COMPUTED TOMOGRAPHY THORAX W/O CNTRST Yu Spencer MD [address] [place] [address] Phone: tel: fax: [facility] [place] [address] Referral IDStatusReasonStart DateExpiration DateVisits RequestedVisits [id number] Request Auto-Generated Referral / Reason for Visit * [id number] opinion for uveitisbilateral posterior uveitis Encounter Details DateTypeDepartmentCare Team (Latest Contact Info)Nxljssxaksw54/31/2025 1:45 PM EDTOffice Visit [facility] [address] [place] [address] Yu Spencer MD [address] [place], [place] [phone] [facility] [address] [address] Choroiditis of both eyes (Primary Dx) Social History Tobacco UseTypesPacks/DayYears UsedDateSmoking Tobacco: FormerCigarettes Smokeless Tobacco: FormerArea Deprivation IndexAnswerDate RecordedNational Score (1-100), lower number is lower kjia132206/18/2025State Score (1-10), lower number is lower [id number] from: https://www.neighborhoodatlas.[facility].edu/. Last address used for ukp[address]nxrxkc[address]/[place]/[address]Sex and Gender InformationValueDate RecordedSex Assigned at BirthNot on fileLegal ZmyGsog4804/06/2025 10:43 AM EDT Gender IdentityNot on fileSexual OrientationNot on filedocumented as of this encounter Patient Instructions * Patient Instructions* Daisy Darling RN - 06/18/2025 4:50 PM EDT Dry Eye Systane Refresh Optive Blink and Soothe XP Please use a Preservative Free Artificial tears 4 times daily and as needed. Available [id number] Use up to four times daily for Dry, Scratchy, or Gritty foreign body sensations in the eye. Additional drop may be used before any prolonged work on computers, reading, or for hobbies such asneedle point, etc. If you are using artificial tears more than six times daily, then use Preservative Free Artificial Tears. The box will state preservative free and they will be in individual tubes with a twist off tops before drop insertion. Avoid using Visine and any other get the red out as this can eventually dry the eyes and make thesymptoms worse. To schedule the Chest CT imaging order see the number listed below: CT appointment [phone] documented in this encounter Progress Notes * Daisy Darling RN - 06/18/2025 1:45 PM EDT HPI: Referred by [facility] Course: - Noticed blurry vision OD March of 2024. No other symptoms -Seen by retina specialist [place] then transferred care to [facility] Dr. [place]. Tried extending to Q8 weeks but worsened -Vision improved with RYDER, no new symptoms on presentation ROS: - POSITIVE: Intermittent episodes of significant abdominal bloating and belching, rash (Petechial rash lower leg during episode of bloating 2019), tattoos . 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 #. 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 No inflammation. FA with staining/ mild leakage of the lesions OU. FAF suggestive of activity OS. OCTA with flow. 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 Work up: - Negative/wnl from Outside lab: ANti MPO ab, Anti PR3 ab, c-ANCA, P-ANCA, CRP, Syphilis, RF, CARMEN, HIV, VZB IgG (serum), AMERICA, TB, toxo IGM -Positive from outside lab ESR 16 (reference is <15), Histopl yeast 1:8 (H) 04/23/24 #. Prior/current immunosuppression: - None PLAN: CT-chest After CT-chest, planning oral prednisone Eylea Q4-6 weeks OU F/U: ~ 3 weeks NEXT: DILATE, OCT both eyes, AUTOLFUGORESCNE OU I have confirmed and edited as necessary the relevant ophthalmic history, ROS, and the neuro exam findings as obtained by others. I have seen and examined this patient. I have discussed the case and the management of this patient's care with the Resident and/or fellowif applicable. I also have reviewed and agree with the assessment and plan as stated above and agree with all of its relevant components. Yu Spencer MD, PhD Vitreoretinal Surgery & Ocular Inflammatory Diseases [facility] documented in this encounter Plan of Treatment DateTypeDepartmentCare Team (Latest Contact Info)Kgxmgkknhso75/21/2025 8:00 AM ESTOffice Visit [facility] [address] [address] Yu Spencer MD [address] [place], [place] [phone] [facility] [address] [address] Return in about 3 weeks (around 07/09/2025) for DILATe OU, OCT OU, FA/ICG OU transit OD.NameTypePriorityAssociated DiagnosesOrder ScheduleSYPHILIS TREPONEMAL W/REFLEXLabRoutine Choroiditis of both eyes Expected: 06/18/2025, Expires: 09/17/2025T CHEST WO IVCONRadiologyRoutine Choroiditis of both eyes 1 Occurrences starting 06/18/2025 until 07/18/2026OCT MACULA CIRRUS OU (BOTH EYES)OPHT ImagingRoutine Choroiditis of both eyes 1 Occurrences starting 06/18/2025 until 12/10/2026FUNDUS AUTOFLUORESCENCE PHOTO (FAF) OU (BOTH EYES)OPHT ImagingRoutine Choroiditis of both eyes 1 Occurrences starting 06/18/2025 until 12/10/2026documented as of this encounter Procedures Procedure NamePriorityDate/TimeAssociated DiagnosisCommentsFA/ICG ANGIOGRAPHY OU(BOTH EYES),TRANSIT OD(RIGHT EYE)Vwfgact0906/18/2025 3:05 PM EDT Choroiditis of both eyes OCT MACULA CIRRUS OU (BOTH EYES)Srcwqim1906/18/2025 3:03 PM EDT Choroiditis of both eyes OCT ANGIOGRAPHY OU (BOTH EYES)Vahcakc1106/18/2025 3:03 PM EDT Choroiditis of both eyes documented in this encounter Results * FA/ICG ANGIOGRAPHY OU(BOTH EYES),TRANSIT OD(RIGHT EYE) (06/18/2025 3:05 PM EDT)Anatomical RegionLateralityModalityOther Narrative 06/18/2025 4:45 PM EDT Date of Procedure 06/18/2025 Heating Mechanic Information Tinsmith Apprentice: ABHILASH Start time: 2:26 PM Stop time: 3:03 PM 24 gauge angiocath inserted into left antecubital vein. 2 cc's ICG dye injected followed by 2.5 cc's 10% NaCl. No complications. Catheter removed, intact. Patient tolerated. Melany Oneil RN 06/18/2025 2:46 PM Gain tuned all the way up and still did not see dye until late in ICG . Interpretation Right Eye Findings include Leakage. Hypocyanesence. Left Eye Findings include Leakage. Hypocyanesence. Notes Lesions with some leakage RE Lesions with mild leakage/staining LE Authorizing ProviderResult TypeResult StatusPhoekelly Spencer MDOPHTHALMOLOGYFinal Result * OCT MACULA CIRRUS OU (BOTH EYES) (06/18/2025 3:03 PM EDT)Anatomical Region LateralityModalityOther Narrative 06/18/2025 4:46 PM EDT Date of Procedure 06/18/2025 Heating Mechanic Information Tinsmith Apprentice: ABHILASH Start time: 2:26 PM Stop time: 3:03 PM OCT Macula Interpretation Right Eye Findings include PED, RPE Irregularity; Negative for Intraretinal fluid, Subretinal fluid. Left Eye Findings include PED, Ellipsoid Zone Loss, RPE Irregularity; Negative for Intraretinal fluid, Subretinal fluid. Interval Change Right Eye Initial Left Eye Initial Authorizing ProviderResult TypeResult Manuela Spencer MDOPHTHALMOLOGYFinal Result * OCT ANGIOGRAPHY OU (BOTH EYES) (06/18/2025 3:03 PM EDT)Anatomical Region LateralityModalityOther Narrative 06/18/2025 4:45 PM EDT Date of Procedure 06/18/2025 Heating Mechanic Information Tinsmith Apprentice: ABHILASH Start time: 2:26 PM Stop time: 3:03 PM Interpretation Right Eye Findings include CNV. Left Eye Findings include CNV. Authorizing ProviderResult TypeResimmanuel Spencer MDOPHTHALMOLOGYFinal Result documented in this encounter Visit Diagnoses Diagnosis Choroiditis of both eyes- Primary documented in this encounter Administered Medications Medication OrderMAR ActionAction DateDoseRateSite fluorescein 250 mg injection 250 mg, INTRAVENOUS, ONCE, 1 dose, On Sat06/18/25 at 1430, [facility] MED ORDERS Indications:Choroiditis of both zvxpAeflj24/31/2025 2:46 PM CKE221 mgIV indocyanine green 25 mg injection (IC GREEN) 25 mg, INTRAVENOUS, ONCE, 1 dose, On Sat06/18/25 at 1430, [facility] MED ORDERS Indications:Choroiditis of both axhvYyqug25/31/2025 2:46 PM EDT25 mgIVdocumented in this encounter
--- OUTSIDE RECORDS SUMMARY | 2025-06-23 13:01 | XMS_ITS | Encounter Summary ---
Author Organization [facility] Address [address] [place] [address] Care Team Providers Care Sludge Control Operator Name Role Phone Unavailable Primary Care Provider Unavailabl e Source Comments In the event this information is protected by the Federal Confidentiality of Alcohol and Drug AbusePatient Records regulations: The Federal rules restrict any use of the information to criminally investigate or prosecute any alcohol or drug abuse patient.[facility] Encounter Details DateTypeDepartmentCare Team (Latest Contact Info)Dysvaqirbey34/04/2025 Get Medical Advice Ophthalmology [address] [place] [id number] Yu Spencer MD [address] [place] [address] Swapnil Weeks testing Social History Tobacco UseTypesPacks/DayYears UsedDateSmoking Tobacco: FormerCigarettes Smokeless Tobacco: FormerArea Deprivation IndexAnswerDate RecordedNational Score (1-100), lower number is lower aomt347406/18/2025State Score (1-10), lower number is lower lzpu626Data from: https://www.neighborhoodatlas.medicine.[facility].edu/. Last address used for [address] [facility]06/18/2025Sex and Gender InformationValueDate RecordedSex Assigned at BirthNot on fileLegal RwgKzge7904/06/2025 10:43 AM EDT Gender IdentityNot on fileSexual OrientationNot on filedocumented as of this encounter Miscellaneous Notes * Telephone Encounter - Edda Brush - 06/22/2025 4:09 PM EST Images from the original note were not included. LV: 06/18/25 FV: 07/09/25 Swapnil Rodríguez [facility] (supporting Yu Spencer MD)8 hours ago (7:23 AM) TB and syphilis test ordered. These tests were done and were negative last year when symptoms started. Do you want these repeated? Daisy Darling RN filed at 06/18/2025 6:29 PM Status: Signed Expand All Collapse All MD HPI: Referred by [facility] Course: - Noticed blurry vision OD March of 2024. No other symptoms -Seen by retina specialist in [place] then transferred [facility] Dr. Bay. Tried extending to Q8 weeks but worsened -Vision improved with RYDER, no new symptoms on presentation ROS: - POSITIVE: Intermittent episodes of significant abdominal bloating and belching, rash (Petechial rash lower leg during episode of bloating 2019), tattoos . 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 #. [...] PhD Vitreoretinal Surgery & Ocular Inflammatory Diseases [facility] documented in this encounter Plan of Treatment DateTypeDepartmentCare Team (Latest Contact Info)Bpntrmrmqxl51/21/2025 8:00 AM ESTOffice Visit OPHT Ophthalmology [address] [address] Yu Spencer MD [address] [place] [address] Diagnostics, [facility] [address] [address] Return in about 3 weeks (around 07/09/2025) for DILATe OU, OCT OU, FA/ICG OU transit OD.documented as of this encounter Visit Diagnoses Not on filedocumented in this encounter
--- OUTSIDE RECORDS SUMMARY | 2025-06-23 13:01 | XMS_ITS | Patient Health Record ---
Author Organization [facility] in [place] Address [address] [place] [address] Care Team Providers Care Weld Technician Name Role Phone Carlos Abernathy [phone] Results Component Value Reference Range Notes Homocyst(e)ine Reviewed date:05/02/2025 01:07:23 PM Interpretation: Performing Lab: Notes/Report: [facility] Homocyst(e)ine 13.3 0.0-14.5 umol/L Performed at: - [facility] [address] [id number] Marketing Underwriter: Buddy Castellano PhD, Phone: [phone] Performing Lab: see note LC - [facility] LB Reason For Referral No Information Problems Problem Type SNOMED Code ICD Code Onset Dates Problem Status W/U Status Risk Notes Problem 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, 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) ActiveconfirmedProblemVisual disturbance (76101336)Vision changes (H53.9)Active confirmedProblemIntracranial mass (27426991)Intracranial mass (R90.0)Active confirmedProblemChorioretinitis (71646414)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)ActiveconfirmedProblemChorditis (60514158)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 confirmed Encounters Encounter Location Date Provider Diagnosis [facility] [address] [place] [address] 04/27/2025 Carlos Abernathy Chorioretinal inflammation of right eye H30.91 Assessments Encounter Date Diagnosis (ICD Code) Assessment Notes Treatment Notes Treatment Clinical Notes Section Notes 04/27/2025 Chorioretinal inflammation of ri ght eye (ICD-10 - H30.91) Plan Of Treatment Pending Test Test Name Order Date MRI Brain w/wo contrast * 03/16/2024 HOMOCYSTEINE 04/27/2025 MRI BRAIN WO CON 03/16/2024 MRI ORBIT WO W CON 03/16/2024 Insurance Providers Payer Name Payer Address Payer Phone Subscriber Number Group Number Insured Name Patient Relationship to Insured Coverage Start Date Coverage End Date [employer] NICOL [address] [place] [address] [id number] Heather Weekself - patient is the insured[address] [place], [place] [phone], NicoleNatural Child - Insured has Financial Responsibility
--- OUTSIDE RECORDS SUMMARY | 2025-06-23 13:01 | XMS_ITS | Clinical Summary ---
Author Organization [facility] Address [address] [place] [address] Care Team Providers Care Coin Box Collector Name Role Phone Sterling, Miranda REAL ESTATE SALESPERSON Unavailable [phone] Pa Vickers MD Primary Care Provider [phone] Allergies Active AllergyReactionsCriticalityNoted DateCommentsHydrocodone-Acetaminophen Hives05/29/20238754Qfumljvc18/11/2023 Other Reaction(s): hives Medications No known medications Active Problems ProblemNoted DateDiagnosed KcngNjshgcrgc76/09/2025Intracranial mass11/25/2024 Visual mfwvirbddgv23/09/2025Macular ecwiwoeofgvk06/09/2025ipolar 2 disorder 12/16/2023 Assessment & Plan (12/16/2023 6:02 PM EDT): Was previously on Wellbutrin. Not using it anymore. Symptoms controlled w/o meds. Attention deficit hyperactivity disorder (ADHD), predominantly inattentive type 12/16/2023 Assessment & Plan (12/16/2023 6:02 PM EDT): Was previously on Wellbutrin. Not using it anymore. Symptoms controlled w/o meds. Abdominal bloating with jkdzva0412/16/2023 Assessment & Plan (02/17/2024 5:44 PM EDT): Abdominal pain and bloating, symptoms resolve with BM. Associated diarrhea. Improved a little with rifaximin. Irritable bowel syndrome with ujoptlin04/29/2024 Assessment & Plan (02/17/2024 5:43 PM EDT): Reports abdominal cramping, bloating, urgency and diarrhea. No food trigger. Excessive bloating andgas noted. Symptoms ongoing for 6 months. Abdominal pain and bloating usually improve with bowel movement. Likely IBS with diarrhea and or Small bowel bacterial overgrowth. Was prescribed Rifaximin that helped a little with his symptoms but they recurred within a week or so. Patient had asked for a referral to GI previously but has a long wait time to see them. Will order Dicyclomine for the patient. Can use Rifaxmin again as it helped previously. Discussed dietary modifications with IBS. Assessment & Plan (12/16/2023 6:05 PM EDT): Reports abdominal cramping, bloating, urgency and diarrhea. No food trigger. Excessive bloating andgas noted. Symptoms ongoing for 6 months. Abdominal pain and bloating usually improve with bowel movement. Likely IBS with diarrhea and or Small bowel bacterial overgrowth. Discussed with patient. Educated him on the importance of maintaining food diary. Recommended decreasing dairy and gas forming food. Will start patent on Rifaximin. Patient counseled and educated on adverse effects, drug interactions and to reach out to office/pharmacy if questions or concerns related to new medications. Immunizations ImmunizationAdministration DatesNext DueDTaP, Aukxizqohvq57/05/2007,06/26/2002, 2001,2001,2001Hep B, Adolescent or Vhraceisc61/03/2002, 2001,2001HiB, ufgtemiegyr99/08/2002,2001IPV08/23/2006, 2001,2001,2001MMR08/23/2006,06/26/2002Meningococcal MCV4O 03/16/2019Meningococcal PMA2X8507/09/2013Pfizer Purple Cap SARS-CoV-2 Vaccination 08/08/2021,1Pneumococcal Conjugate PCV 7002/20/2002,2001, 2001Tdap109/08/20129208Hdeubxbzr54/05/2002 Family History Medical HistoryRelationNameCommentsCancerMaternal GrandfatherSteve RansomeMM DiabetesMaternal GrandfatherSteve RansomeRelationNameStatusCommentsFatherAlive Maternal GrandfatherSteve RansomeMaternal GrandmotherAliveMotherAlive Social History Tobacco UseTypesPacks/DayYears UsedDateSmoking Tobacco: NeverPassive Smoke Exposure: NeverSmokeless Tobacco: Never Tobacco Cessation:Counseling Given: No Alcohol UseStandard Drinks/XznoKsoaseaiDyb95 (1 standard drink = 0.6 oz pure alcohol)WEEKENDSPHQ-2AnswerDate RecordedPatient Health Questionnaire-2 Score0 02/17/2024Sex and Gender InformationValueDate RecordedSex Assigned at BirthNot on fileLegal WxjBgit3910/31/2022 7:05 PM EDTGender IdentityNot on fileSexual OrientationNot on file Last Filed Vital Signs Vital SignReadingTime TakenCommentsBlood Tirkdhgf043/8407 5:39 PM EDT Irlyo563402/17/2024 5:39 PM EDT98% W9Hykykdskbrh70.4 ??C (97.5 ??F)02/17/2024 5:39 PM EDTRespiratory Rate--Oxygen Saturation--Inhaled Oxygen Concentration--Weight 75.8 kg (167 lb)02/17/2024 5:39 PM UOWQaleyp676.8 cm (5' 10 )02/17/2024 5:39 PM EDTBody Mass Index23.9602/17/2024 5:39 PM EDT Plan of Treatment Not on file Insurance [facility] Address: [facility] [id number] [place] [address] * Guarantor: Gael Weeks TypeRelation to PatientDate of BirthPhone Billing AddressPersonal/FazuitWxqw[address] [place] [address] Care Teams Team MemberRelationshipSpecialtyStart DateEnd Date Pa Vickers MD PCP - GeneralFamily Azwrlxjb69/19/24 Miranda Sterling NP Nurse PractitionerFamily Eoxfeysx01/16/24
--- OUTSIDE RECORDS SUMMARY | 2025-06-23 13:01 | XMS_ITS | Clinical Summary ---
[facility] Address [id number] [place] [address] Care Team Providers Care Meter Shop Supervisor Name Role Phone Unavailable Primary Care Provider Unavailabl e Social History Tobacco UseTypesPacks/DayYears UsedDateSmoking Tobacco: Never AssessedChildcare AnswerDate QogmcxewVdeohamrkQeuckjq49/06/2019EmploymentAnswerDate Recorded EgrfsycjmiYdrzobj50/06/2019Purpose - LifeAnswerDate RecordedPurpose and direction in ojwpRwrsksd54/10/2021Sex and Gender InformationValueDate Recorded Sex Assigned at BirthNot on fileLegal VztPiqa4803/22/2015 6:03 PM EDTGender IdentityNot on fileSexual OrientationNot on file Plan of Treatment Health MaintenanceDue DateLast DoneCommentsDepression Nstwfxkou94/18/2013Tobacco Csviduwea27/18/2013dult BMI Rewozosdl80/18/2019DTaP,Tdap and Td Vaccines (1 - Tdap)02/04/2020Influenza Vzekunz7204/19/2025 Medical Devices Not on file
--- OUTSIDE RECORDS SUMMARY | 2025-06-23 13:01 | XMS_ITS | Encounter Summary ---
Author Organization [facility] Address [address] [place] [address] Care Team Providers Care Optical Engineering Technician Name Role Phone Unavailable Primary Care Provider Unavailabl e Source Comments In the event this information is protected by the Federal Confidentiality of Alcohol and Drug AbusePatient Records regulations: The Federal rules restrict any use of the information to criminally investigate or prosecute any alcohol or drug abuse patient.[facility] Encounter Details DateTypeDepartmentCare Team (Latest Contact Info)Qxbhqkfomod10/31/2025Travel Social History Tobacco UseTypesPacks/DayYears UsedDateSmoking Tobacco: FormerCigarettes Smokeless Tobacco: FormerArea Deprivation IndexAnswerDate RecordedNational Score (1-100), lower number is lower hvkj132006/18/2025State Score (1-10), lower number is lower wcut623Data from: https://www.neighborhoodatlas.medicine.[facility].edu/. Last address used for [address] [facility]06/18/2025Sex and Gender InformationValueDate RecordedSex Assigned at BirthNot on fileLegal HciTujz5104/06/2025 10:43 AM EDT Gender IdentityNot on fileSexual OrientationNot on filedocumented as of this encounter Plan of Treatment DateTypeDepartmentCare Team (Latest Contact Info)Bmoswcjganq13/21/2025 8:00 AM ESTOffice Visit OPHT Ophthalmology [address] [place] [address] Yu Spencer MD [address] [place] [address] Diagnostics, [facility] [address] [facility] [address], [place] [address] Return in about 3 weeks (around 07/09/2025) for DILATe OU, OCT OU, FA/ICG OU transit OD.documented as of this encounter Visit Diagnoses Not on filedocumented in this encounter
--- OUTSIDE RECORDS SUMMARY | 2025-06-23 13:01 | XMS_ITS | Patient Health Record ---
Author Organization [facility] Address [address] [place] [address] Care Team Providers Care Service Worker Helper Name Role Phone Maria Luisa Richardson Primary Care Provider Reason For Referral No Information Problems Problem Type SNOMED Code ICD Code Onset Dates Problem Status W/U Status Risk Notes Problem Mixed anxiety and de pressive disorder (134085058) Depression with anxiety (F41.8) Activeconfirmed Plan Of Treatment No Information Insurance Providers Payer Name Payer Address Payer Phone Subscriber Number Group Number Insured Name Patient Relationship to Insured Coverage Start Date Coverage End Date ANTHEM Primary [address] [place] [address] [id number] Child - Insured has Financial Responsibility 3
--- OUTSIDE RECORDS SUMMARY | 2025-06-23 13:01 | XMS_ITS | Clinical Summary ---
Author Organization [facility] Address [address] [place] [address] Care Team Providers Care Cutting Table Operator First Name Role Phone Unavailable Primary Care Provider Unavailabl e Allergies Active AllergyReactionsCriticalityNoted DateCommentsHydrocodone-Acetaminophen Hives05/29/20233471WpjgyhovPvsj58/11/2023 Other Reaction(s): hives Medications Hospital, Clinic, or Other Facility Administered MedicationOrdered DoseRoute FrequencyStart DateEnd DateStatus fluorescein-benoxinate 0.3-0.4 % 1 drop (FLURESS) Indications:Choroiditis of both eyes1 dropOUAS WRYNDXTP31Ended proparacaine 0.5 % 1 drop (ALCAINE) Indications:Choroiditis of both eyes1 dropOUAS NCGAHDZI40Ended tropicamide 1 % 1 drop (MYDRIACYL) Indications:Choroiditis of both eyes1 dropOUAS DKFDJQGF33Ended PHENYLephrine 2.5 % 1 drop (AK-DILATE, FREDDY-SYNEPHRINE) Indications:Choroiditis of both eyes1 dropOUAS RYANNUEG61/08/2024Ended fluorescein 250 mg injection Indications:Choroiditis of both jske739 tzGNKWAQ24Ended indocyanine green 25 mg injection (IC GREEN) Indications:Choroiditis of both eyes25 ugBWZILE80Ended diphenhydrAMINE 12.5-50 mg oral liquid (BENADRYL) Indications:Choroiditis of both eyes12.5 - 50 mgPOAS GFPVRM40/2025 Ended Active Problems ProblemNoted DateDiagnosed DateChoroiditis of both eyes06/17/2025 Encounters DateTypeDepartmentCare PnfqUqwefzhxkih76/04/2025 Get Medical Advice Ophthalmology [address] [address] Yu Spencer MD Dererobert Dyesara avimybw5806/18/2025 1:45 PM EDTOffice Visit OPHT Ophthalmology [address] [address] Yu Spencer MD Diagnostics, [facility] Tech And Choroiditis of both eyes (Primary Dx)06/18/2025Travelfrom Last 3 Months Family History Medical HistoryRelationCommentsGlaucomaMaternal GrandfatherRelationStatus CommentsMaternal Grandfather Social History Tobacco UseTypesPacks/DayYears UsedDateSmoking Tobacco: FormerCigarettes Smokeless Tobacco: FormerArea Deprivation IndexAnswerDate RecordedNational Score (1-100), lower number is lower pfjp149106/18/2025State Score (1-10), lower number is lower utvh359Data from: https://www.neighborhoodatlas.medicine.[facility].edu/. Last address used for [address]06/18/2025Sex and Gender InformationValueDate RecordedSex Assigned at BirthNot on fileLegal RezWvys4804/06/2025 10:43 AM EDT Gender IdentityNot on fileSexual OrientationNot on file Plan of Treatment DateTypeDepartmentCare Team (Latest Contact Info)Gmswnpgsooa89/21/2025 8:00 AM ESTOffice Visit OPHT Ophthalmology [address] [address] Yu Spencer MD [address] [place] [address] Diagnostics, [facility] [address] [address] Return in about 3 weeks (around 07/09/2025) for DILATe OU, OCT OU, FA/ICG OU transit OD.Health MaintenanceDue DateLast DoneCommentsPeds To Adult Transition Initial Wdigbcnfgk45/18/2013Peds To Adult Transition Annual Hdnclavpgp13/18/2015 HPV Vaccine (1 - Male 3-dose series)02/04/2016Anxiety Zagrgksuu05/18/2019 Depression Mxorbwusg18/18/2019HIV Qzgtxnzme91/18/2019Hepatitis C Screening 2019DTaP,Tdap,Td Vaccine (7 - Td or Tdap)3109/08/2012, 08/23/2006, 06/26/2002, Additional history existsCovid-19 Vaccine (3 - season) /, 07/18/2021Influenza Vaccine (#1)2025Hepatitis B IyuuncaFdtzpoztu52/03/2002, 2001, 2001 Procedures Procedure NamePriorityDate/TimeAssociated DiagnosisCommentsFA/ICG ANGIOGRAPHY OU(BOTH EYES),TRANSIT OD(RIGHT EYE)Crvyzbb4906/18/2025 3:05 PM EDT Choroiditis of both eyes OCT MACULA CIRRUS OU (BOTH EYES)Bubkoef7406/18/2025 3:03 PM EDT Choroiditis of both eyes OCT ANGIOGRAPHY OU (BOTH EYES)Vwxvhkn6806/18/2025 3:03 PM EDT Choroiditis of both eyes from Last 3 Months Results * FA/ICG ANGIOGRAPHY OU(BOTH EYES),TRANSIT OD(RIGHT EYE) (06/18/2025 3:05 PM EDT)Anatomical RegionLateralityModalityOther Narrative 06/18/2025 4:45 PM EDT Date of Procedure 06/18/2025 Hand Stemmer Information Hoop Riveter: ABHILASH Start time: 2:26 PM Stop time: [...] with mild leakage/staining LE Authorizing ProviderResult TypeResult Manuela Spencer MDOPHTHALMOLOGYFinal Result * OCT MACULA CIRRUS OU (BOTH EYES) (06/18/2025 3:03 PM EDT)Anatomical Region LateralityModalityOther Narrative 06/18/2025 4:46 PM EDT Date of Procedure 06/18/2025 Hand Stemmer Information Hoop Riveter: LJ Start time: 2:26 PM Stop time: 3:03 [...] 4:45 PM EDT Date of Procedure 06/18/2025 Hand Stemmer Information Hoop Riveter: LJ Start time: 2:26 PM Stop time: 3:03 PM Interpretation Right Eye Findings include CNV. Left Eye Findings include CNV. Authorizing ProviderResult TypeResult Manuela Spencer MDOPHTHALMOLOGYFinal Result from Last 3 Months Insurance MemberSubscriberPlan / Payer (Effective 2024-Present)Name:MONICA GREEN Member ID:[id number] Relation to Subscriber:ChildName:NOY GREEN Subscriber ID:[id number] Date of :1970 (Home) Address: [address] [place] [address] Payer ID:[id number] (NAIC) Type:PPO Address: [id number] [place] [id number]
--- NOTE | 2025-06-23 13:02 | CT_ITS ---
The [address] [address] Patient Name: MONICA GREEN MRN: [id number] date: 2000 Sex: M Assigned Patient Location: CT Current Patient Location: Accession/Order Number: [id number] Exam Date: 06/23/2025 13:05 Report Date: 06/24/2025 08:15 At the request of: NON-STAFF PHYSICIAN MD Procedure: CT chest wo con CT CHEST WITHOUT CONTRAST COMPARISON: 04/08/2019 CLINICAL DATA: Choroiditis of both eyes. Study to assess for sarcoidosis. Spiral axial unenhanced images were obtained through the chest. Images were reviewed using both narrow and wide window settings. This CT exam was performed using one or more following dose reduction techniques: Automated exposure control, adjustment of the mA and/or kV according to patient size, or use of iterative reconstruction technique. The heart is top normal in size. No pericardial effusion is present. No aortic aneurysm is seen. There is residual thymic tissue at the anterior mediastinum. There are tiny nonpathologic mediastinal lymph nodes. There is no obvious hilar adenopathy however there are small calcifications on the right may be a granulomas. There is minor gynecomastia. There is subtle dextroscoliotic curvature. There is minimal apical scarring. There is minor atelectasis and/or scarring at the lung bases. No additional consolidation, pleural effusion or pneumothorax is seen. There is nodularity along the fissures that may be intrapulmonary lymph nodes. The largest on the right appears to be calcified. There are some additional subpleural nodules at the lung bases which were present previously though are slightly larger. There is also a developing 8 mm nodular area within the anterolateral right lower lobe abutting the hemidiaphragm that is also slightly hyperdense and potentially calcified. Limited imaging through the upper abdomen shows no contributory findings. CT/CT chest wo con IMPRESSION: MILD ATELECTASIS/SCARRING. MINOR CENTRAL AND PERIPHERAL GRANULOMATOUS CHANGES ON THE RIGHT. Impression dictated by: Ariadna Anderson M.D. 06/24/2025 8:15 AM Dictation Location: [place] [address] Electronically authenticated by: [id number] Y Date: 06/24/2025 08:15
--- OUTSIDE RECORDS SUMMARY | 2025-06-23 13:03 | XMS_ITS | CCD ---
Author Organization [facility] Care Team Providers Care Supervisor [employer] Name Role Phone DR SCOTT ROMANO Admitting Unavailable DR SCOTT ROMANO Consulting Unavailable DR SCOTT ROMANO Attending Unavailable DR MONICA GUILLORY Primary Care Unavailable LEIDA, DR ROXANE De La Paz Consulting Unavailable JOSESITO GOVEA Consulting Unavailable SHAIKH REDDY Attending Unavailable SHAIKH REDDY Attending Unavailable Paul Rodrigues, December Attending Unavailable Paul Rodrigues, December Referring Unavailable YU SPENCER Attending Unavailable Allergies Allergy ClassificationReported Allergen(s)Allergy TypeDate of OnsetReaction(s) Facility (1 source)Acetaminophen / HYDROcodoneDrug Wzgjngs09-22-4522Qyb [facility] Repository (1 source)Acetaminophen / HYDROcodone; Translations: [HYDROCODONE-ACETAMINOPHEN] Drug Wgbaclz48-80-7773By[facility]fnddTr[facility] ([facility] source)traMADol; Translations: [TRAMADOL]Drug Vhtimnv62-40-3771XbppvlrwaTrinity [facility] Rep[facility] Problems Problem ClassificationProblemDateDocumented DateEpisodic/ChronicAllergic reactions (1 source)Dermatitis, unspecified; Translations: [DERMATITIS UNSPECIFIED]Onset: 23-28-5193TifimcnqPaooxmybpuxk; infection of eye (except that caused by tuberculosis or sexually transmitteddisease) (2 sources)Unspecified chorioretinal inflammation, bilateral; 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]Onset: 94-64-1793DkszdnzAwqpx eye disorders (1 source)Other disorders of optic disc, bilateral; 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]Onset: 89-34-4929DwflhpgTjqtz upper respiratory infections (4 sources)Acute pharyngitis, unspecified; Translations: [ACUTE PHARYNGITIS UNSPECIFIED]Onset: 47-14-1957YejvzcsnCcjyzyg detachments; defects; vascular occlusion; and retinopathy (1 source)Retinal neovascularization, unspecified, right eye; 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, right eye]Onset: 43-81-7685YtinlmvEyyahqwygdpb (1 source)CONTACT W/AND (SUSP) EXPOS COVID-19; Translations: [CONTACT W/AND (SUSP) EXPOS COVID-19]Onset: 02-08-2021 Results Test NameValueInterpretationReference RangeFacilityCBC AUTO DIFFon 02-06-2021 BASO #0.0 103/ulNormal0.0-0.1The [facility] CenterComment on above:Performed By: #### CBC #### [facility] [address] [id number] Mandeep KarenBasophils/100 WBC (Bld)0.1 %Critically low0.2-2.0The [facility] CenterComment on above:Performed By: #### CBC #### [facility] [address] [address] Mandeep KarenEO #0.2 103/ulNormal0.0-0.7The [facility] CenterComment on above: Performed By: #### CBC #### [facility] [address] [id number] Mandeep KarenEosinophils/100 WBC (Bld)1.3 %Normal0.9-7.0The [facility] Comment on above:Performed By: #### CBC #### [facility] [address] [id number] Mandeep KarenErythrocyte distribution width (RBC) [Ratio]12.6 %Mcdkhe83.0-15.0The [facility] CenterComment on above:Performed By: #### CBC #### [facility] [address] [id number] Mandeep KarenHematocrit (Bld) [Volume fraction]49.3 %Nogbhq44.0-54.0The [facility] CenterComment on above:Performed By: #### CBC #### [facility] [address] [id number] Mandeep KarenHemoglobin (Bld) [Mass/Vol]16.9 g/xOOexwda68.0-18.0[facility] HospitalComment on above:Performed By: #### CBC #### [facility] [address] [address] Mandeep MacdonaldenIG #0.06 10e3/ulCritically high0.00-0.03The [facility] CenterComment on above:Performed By: #### CBC #### [facility] [address] [address] Mandeep MacdonaldenIG %0.4 %Normal0.0-0.5The [facility] CenterComment on above: Performed By: #### CBC #### [facility] [address] [place] [address] Mandeep RosenthalLYMPH #1.5 103/ulNormal1.2-3.8The [facility] CenterComment on above: Performed By: #### CBC #### [facility] [address] [place] [address] Mandeep KarenLymphocytes/100 WBC (Bld)10.6 %Critically low20.5-60.0[facility] HospitalComment on above:Performed By: #### CBC #### [facility] [address] [place] [address] Mandeep MacdonaldenMANUAL DIFF REQNONormalPromedica Memorial HospitalComment on above: Performed By: #### CBC #### [facility] [address] [place] [address] Mandeep KarenMCH (RBC) [Entitic mass]30.6 ijRhbojr81.9-34.0[facility] Comment on above:Performed By: #### CBC #### [facility] [address] [place] [address] Mandeep KarenMCHC (RBC) [Mass/Vol]34.3 g/lFYkhcpl67.9-35.2[facility] Comment on above:Performed By: #### CBC #### [facility] [address] [place] [address] Mandeep KarenMCV (RBC) [Entitic vol]89.2 wJKpxjme67.0-94.0[facility] Comment on above:Performed By: #### CBC #### [facility] [address] [address] Mandeep KarenMONO #1.3 103/ulCritically high0.3-0.8The [facility] HospitalComment on above:Performed By: #### CBC #### [facility] [address] [address] Mandeep KarenMonocytes/100 WBC (Bld)8.9 %Normal1.7-12.0The [facility] Comment on above:Performed By: #### CBC #### [facility] [address] [place] [address] Mandeepelizabeth MacdonaldenNEUT #11.1 103/ulCritically high1.4-6.5The [facility] CenterComment on above:Performed By: #### CBC #### [facility] [address] [place] [address] Mandeep KarenNeutrophils/100 WBC (Bld)78.7 %Critically high43.0-75.0The [facility] CenterComment on above:Performed By: #### CBC #### [facility] [address] [place] [address] Mandeep KarenPlatelet mean volume (Bld) [Entitic vol]11.3 fLNormal9.5-13.5The [facility] CenterComment on above:Performed By: #### CBC #### [facility] [address] [place] [address] Mandeep WliajQNJ833 103/piVinkit466-272Yit [facility] HospitalComment on above: Performed By: #### CBC #### [facility] [address] [place] [address] Mandeep KarenRBC5.53 106/ulNormal4.70-6.10The [facility] CenterComment on above: Performed By: #### CBC #### [facility] [address] [place] [address] Mandeep DdimbGKJ14.1 103/ulCritically high4.0-11.0The [facility] CenterComment on above:Performed By: #### CBC #### [facility] [address] [place] [address] Mandeep KarenCULTURE THROATon 53-79-5589FAMTOJA THROATCulture Observations: NORMAL RESPIRATORY MERCEDES.NormalThe [facility] CenterComment on above:Performed By: #### THRTCX, SSCRN #### [facility] [address] [place] [address] Mandeep KarenCovid-19 PCR (CVDTBH)on 06-22-3859UDOY-CoV-2 (COVID-19) RNA SOY+probe Ql (Unsp spec)Not detectedNormalNOT DETECTEDThe [facility] Comment on above:Result Comment: This test is not yet approved or cleared by the [place] FDA. When there are no FDA-approved or cleared tests available, and other criteria are met, FDA can make tests available under an emergency access mechanism called an Emergency Use Authorization (EUA). The EUA for this test is supported by the Pacs Administrator of Health and Human Service's (HHS's) declaration that circumstances exist to justify the emergency use of in vitro diagnostics for the detection and/or diagnosis of the virus that causes COVID- 19. This EUA will remain in effect (meaning [...] of clinical signs and symptoms consistent with SARS-CoV-2.Performed By: #### CVDTBH #### [facility] [address] [place] [address] Mandeep KarenMONOon 76-15-4282Kmraxjfwh (Bld) [#/Vol]NegativeNormalNEGATIVEThe [facility] CenterComment on above:Performed By: #### MONO #### [facility] [address] [place] [address] Mandeep KarenPROF 14(COMP METB)on 03-11-0935Siobzvb [Mass/Vol]4.2 g/dLNormal 3.5-5.0The [facility] CenterComment on above:Performed By: #### CMP #### [facility] [address] [id number] Mandeep KarenAlbumin/Globulin [Mass ratio]1.1 {ratio}NormalPromedica Memorial Hospital Comment on above:Performed By: #### CMP #### [facility] [address] [address] Mandeep KarenALP [Catalytic activity/Vol]85 U/ELpsgmr23-276Bnr [facility] Comment on above:Performed By: #### CMP #### [facility] [address] [address] Mandeep KarenALT [Catalytic activity/Vol]24 U/USwrsma02-52Hyi [facility] Comment on above:Performed By: #### CMP #### [facility] [address] [place] [address] Mandeep KarenAnion gap [Moles/Vol]14.2 mmol/LNormalThe [facility] CenterComment on above:Performed By: #### CMP #### [facility] [address] [place] [address] Mandeep KarenAST [Catalytic activity/Vol]15 U/LCritically vxv80-65Fvq [facility] CenterComment on above:Performed By: #### CMP #### [facility] [address] [place] [address] Mandeep KarenBilirubin [Mass/Vol]1.1 mg/dLNormal0.2-1.3The [facility] Comment on above:Performed By: #### CMP #### [facility] [address] [place] [address] Mandeep KarenCalcium [Mass/Vol]9.7 mg/dLNormal8.4-10.2[facility] Comment on above:Performed By: #### CMP #### [facility] [address] [place] [address] Mandeep KarenChloride [Moles/Vol]104 mmol/IWoebni46-518WhiPromedica Memorial Hospital Comment on above:Performed By: #### CMP #### [facility] [address] [place] [address] Mandeep KarenCO2 [Moles/Vol]25.1 mmol/YWfeqcg73.0-30.0The [facility] Comment on above:Performed By: #### CMP #### [facility] [address] [place] [address] Mandeep KarenCreatinine [Mass/Vol]1.18 mg/dLNormal0.66-1.25The [facility] Comment on above:Performed By: #### CMP #### [facility] [address] [place] [address] Mandeep KarenEGFR-AF VINCENTIAN>60Normal>=60The [facility] CenterComment on above: Performed By: #### CMP #### [facility] [address] [place] [address] Mandeep KarenEGFR-NON AF VINCENTIAN>60Normal>=60The [facility] CenterComment on above:Performed By: #### CMP #### [facility] [address] [place] [address] Mandeep KarenGlobulin (S) [Mass/Vol]3.8 g/dLNormalThe [facility] CenterComment on above:Performed By: #### CMP #### [facility] [address] [place] [address] Mandeep KarenGlucose [Mass/Vol]92 mg/hIXgpyop39-731Hkt [facility] CenterComment on above:Performed By: #### CMP #### [facility] [address] [place] [address] Mandeep KarenPotassium [Moles/Vol]4.3 mmol/LNormal3.4-5.0[facility] Comment on above:Performed By: #### CMP #### [facility] [address] [place] [address] Mandeep KarenProtein [Mass/Vol]8.0 g/dLNormal6.1-8.2The [facility] CenterComment on above:Performed By: #### CMP #### [facility] [address] [place] [address] Mandeep KarenSodium [Moles/Vol]139 mmol/KDroodo104-080[facility] Comment on above:Performed By: #### CMP #### [facility] [address] [place] [address] Mandeep KarenUrea nitrogen [Mass/Vol]14.0 mg/dLNormal9.0-20.0[facility] Memorial HospitalComment on above:Performed By: #### CMP #### [facility] [address] [place] [address] Mandeep KarenUrea nitrogen/Creatinine [Mass ratio]11.9 mg/mgTrinity Health System Twin City Medical CenterComment on above:Performed By: #### CMP #### [facility] [address] [place] [address] Mandeep RosenthalRAPID COVID-19 ANTIGENon 70-47-8652EBL StatementSChildren's Hospital of ColumbusComment on above:Result Comment: This test has not been FDA [...] section 564(b)(1) of the Act, 21 U.S.C. 360bbb- 3(b)(1), unless the declaration is terminated or authorization is revoked sooner.Performed By: #### CVDAG #### [facility] [address] [place] [address] Mandeep TranUbuglEIYN-FlZ-2 (COVID-19) RNA SOY+probe Ql (Unsp spec)NegativeNormal NEGATIVEPromedica Memorial HospitalComcorewell health pennock hospital on above:Result Comment: Negative results are presumptive. They do not preclude infection and should not be used as the sole basis for treatment decisions. Additional confirmatory testing by a molecular method should be considered.Performed By: #### CVDAG #### [facility] [address] [place], [place] [address]ken KarenSTREPT SCREENon 58-14-8260CVMAK SCREEN ANegativeNormalNEGATIVEThe [facility] CenterComment on above:Performed By: #### THRTCX, SSCRN #### [facility] [address] [address] Mandeep MacdonaldenXR CHEST 1 Von 90-34-7779EL CHEST 1 VEXAMINATION: XR CHEST 1 V HISTORY: COUGH COMPARISON: No relevant comparison available. FINDINGS: LUNGS: No significant pulmonary parenchymal abnormalities. VASCULATURE: No increased pulmonary vasculature. PLEURA: No pneumothorax, effusion, or pleural thickening. CARDIAC: No cardiomegaly or cardiac silhouette abnormality. MEDIASTINUM: No visible mass or adenopathy. BONES: No fracture or visible bone lesion. OTHER: Negative. IMPRESSION: 1. No acute cardiopulmonary process. Electronically authenticated by: ROXANE CASAREZ Date: 2021-02-06 08:35[facility] Encounters Encounter DateEncounter TypeCare ProviderFacilityStart: 06-18-2025 End: 51-51-4444scoyzriektFCHFHQ LINFacility:[facility] Centertart: 38-35-1315tolmemzibuZdlhzfoq:[facility] Hospitaltart: 90-43-2009Shmfaa outpatient new 45 minutesMay El RashedyCincinnati Eye InstituteStart: 35-77-6245mzsjzmshgeYzh El RashedyCincinnati Eye InstituteStart: 02-17-2024 End: 88-00-5589pcnexnayriUWLJCB FAWWADNot AvailableStart: 12-16-2023 End: 68-60-5229ckrtmjcdhuLLKBBK FAWWADNdaryl AvailableStart: 02-06-2021 End: 20-81-7305kiiuwwkzwxUY SCOTT De La Paz SMITHFacility:H1 Procedures DateProcedureProcedure DetailPerforming ClinicianStart: 24-23-0125Xhqcpggjupv injectionMay El RashedyStart: 53-35-4972Vlkrhtemqcnk ophthalmic imaging retina May El RashedyStart: 44-81-4269Wncaxg Photos No ChargeMay El RashedyStart: 04-38-4814Wigwvrhpunty njx pharmacologic agt spxMay El Rashedy Payers DatePayer CategoryPayerPolicy [id number] Health [id number] [id number] Progress note 06-18-2025 Note Date & RvwoYxggBptiqcgy91-51-5135 NoteHNO ID: [id number] Author: SAMAN BACON RN Service: ? Author Type: Registered Nurse Type: Progress Notes Filed: 06/18/2025 18:29 Note Text: HPI: Referred by [facility] Course: - Noticed blurry vision OD March of 2024. No other symptoms -Seen by retina specialist in [place] then transferred [facility] Dr[facility]. Tried extending to Q8 weeks but worsened -Vision improved with RYDER, no new symptoms on presentation ROS: - POSITIVE: Intermittent episodes of significant abdominal bloating and belching, rash (Petechial rash lower leg during episode of bloating 2019), tattoos . 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 I also have reviewed and agree with the assessment and plan as stated above and agree with all of its relevant components. Yu Spencer MD, PhD Vitreoretinal Surgery AND Ocular Inflammatory Diseases [facility] Summary Purpose Family History No Family History [...] and content) DATE CREATED AUTHOR 04/14/2021 [facility] DATE CREATED AUTHOR 'S ORGANIZ ATION 02/18/2024 [facility] DATE CREATED AUTHOR AUTHOR'S ORGANIZ ATION 03/22/2024 [facility] DATE CREATED AUTHOR AUTHOR'S ORGANIZ ATION 03/29/2024 [facility] DATE CREATED AUTHOR AUTHOR'S ORGANIZ ATION 06/20/2025 [facility] FOR RECORDS PERTAINING TO PATIENTS WHO [...] BE BASED ON THE PRIMARY CLINICAL RECORDS. [facility] [employer] provides no warranty or guarantee of the accuracy or completeness of information in this document.
== END 2025-06-23 13:00 | disposition home or self-care (01) ==
LOC: CT 12:59
PROVIDERS: PCP Family Medicine
DX: D86.9 Sarcoidosis, unspecified (principal)
CPT/HCPCS: 71250

== ENCOUNTER 2025-07-20 08:52 | Outpatient (OUT) | payer BC, SELFPAY ==
--- OUTSIDE RECORDS SUMMARY | 2025-07-09 08:00 | XMS_ITS | Encounter Summary ---
Author Organization [facility] Address [address] [place] [address] Care Team Providers Care Dust Box Worker Name Role Phone Unavailable Primary Care Provider Unavailabl e Source Comments In the event this information is protected by the Federal Confidentiality of Alcohol and Drug AbusePatient Records regulations: The Federal rules restrict any use of the information to criminally investigate or prosecute any alcohol or drug abuse patient.[facility] Reason for Visit * ReasonCommentsPosterior uveitis with CNVM follow up * Injectable (Routine) - AuthorizedSpecialtyDiagnoses / ProceduresReferred By ContactReferred To ContactOphthalmology / OPHTHALMOLOGY Diagnoses Retinal neovascularization, unspecified, bilateral Unspecified chorioretinal inflammation, bilateral Procedures AFLIBERCEPT INJECTION EYLEA 2MG---INJECT RIGHT AND LEFT EYES EVERY 4 WEEKS FOR ONE YEAR Yu Spencer MD [address] [place] [address] Phone: tel: fax: Yu Spencer MD [address] [place] [address] Phone: tel: fax: Referral IDStatusReasonStart DateExpiration DateVisits RequestedVisits [id number] Encounter Details DateTypeDepartmentCare Team (Latest Contact Info)Awepdwlgdei56/21/2025 8:00 AM ESTOffice Visit OPHT Ophthalmology [address] [address] Yu Spencer MD [address] [place] [address] Diagnostics, [facility] [address] [address] Choroiditis of both eyes Social History Tobacco UseTypesPacks/DayYears UsedDateSmoking Tobacco: FormerCigarettes Smokeless Tobacco: FormerArea Deprivation IndexAnswerDate RecordedNational Score (1-100), lower number is lower lscn006907/09/2025State Score (1-10), lower number is lower fcep78609/08/2024Data from: https://www.neighborhoodatlas.[facility].edu/. Last address used for yltsizozigd[address]07/09/20[address]Sex and Gender InformationValueDate RecordedSex Assigned at BirthNot on fileLegal QqiVbwm9604/06/2025 10:43 AM EDT Gender IdentityNot on fileSexual OrientationNot on filedocumented as of this encounter Progress Notes * Yu Spencer MD - 07/09/2025 8:00 AM EST HPI: Here for 3 week f/u appt. No vision changes since last visit. 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 No inflammation. FA with staining/ mild leakage of the lesions OU. FAF suggestive of activity OS. OCTA with flow. 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 Work up: - Negative/wnl from Outside lab: ANti MPO ab, Anti PR3 ab, c-ANCA, P-ANCA, CRP, RPR Syphilis, RF, CARMEN, HIV, VZB IgG (serum), AMERICA, TB test negative, toxo IGM -Positive from outside lab ESR 16 (reference is <15), Histopl yeast 1:8 (H) 04/23/24 -CT Chest results: The heart is top normal in size. No pericardial effusion is present. No aortic aneurysm is seen. There is residual thymic tissue at the anterior mediastinum. There are tiny nonpathologic mediastinal lymph nodes. There is no obvious hilar adenopathy however there are small calcifications on the right may be a granulomas. There is minor gynecomastia. There is subtle dextroscoliotic curvature. There is minimal apical scarring. There is minor atelectasis and /or scarring at the lung bases. No additional consolidation, pleural effusion or pneumothorax is seen. There is nodularity along the fissures that may be intrapulmonary lymph nodes. The largest on the right appears to be c alcified. There are some additional subpleural nodules at the lung bases which were present previously through are slightly larger. There is also a developing 8 mm nodulear area within the anterolateral right lower lobe abutting the hemidiaphragm that is also slighly hyperdense and potentially calcified. #. Prior/current immunosuppression: - None #.Asymmetric Optic Nerve cupping - OD more cupped than ?OS (0.7 vs 0.4) - IOP ok PLAN: RBA IVTA both eyes, given without complication Possible need for Eylea both eyes also in near future F/U: 2 weeks NEXT: DILATE, OCT both eyes, AUTOLUFORESCENCE both eyes I have confirmed and edited as necessary [...] Surgery & Ocular Inflammatory Diseases [facility] documented in this encounter Plan of Treatment DateTypeDepartmentCare Team (Latest Contact Info)Hgdabkegxsj64/06/2025 8:00 AM ESTOffice Visit Pulmonary Medicine [address] [place] [address] Kimani Tamayo MD [address] [place] [address] yfkgwkf5107/28/2025 7:45 AM ESTOffice Visit [facility]HT Ophthalmology [address] [address] Yu Spencer MD [address] [place], [place] [id number] Diagnostics, [facility] [address] [address] Return in about 2 weeks (around 07/23/2025) for DILATe, OCT OU, AUTOFLUORESCENCE OU, visit and send to [facility] for lab work.09/17/2025 10:30 AM ESTOffice Visit [facility]HT Ophthalmology [address] [address] Yu Spencer MD [address] [place] [address] Diagnostics, [facility] [address] [address] Return in about 7 weeks (around 09/03/2025).documented as of this encounter Procedures Procedure NamePriorityDate/TimeAssociated DiagnosisCommentsTRIESENCE INTRAVITREAL INJECTION OS (LEFT EYE)Sjskbvy1807/09/2025 12:55 PM EST Choroiditis of both eyes TRIESENCE INTRAVITREAL INJECTION OD (RIGHT EYE)Bbylowf3507/09/2025 12:53 PM EST Choroiditis of both eyes FUNDUS AUTOFLUORESCENCE PHOTO (FAF) OU (BOTH EYES)Dzkleqg4107/09/2025 8:43 AM EST Choroiditis of both eyes OCT MACULA CIRRUS OU (BOTH EYES)Oclrtma9707/09/2025 8:43 AM EST Choroiditis of both eyes documented in this encounter Results * TRIESENCE INTRAVITREAL INJECTION OS (LEFT EYE) (07/09/2025 12:55 PM EST) Narrative Yu Spencer MD - 07/09/2025 12:55 PM EST Date of Procedure 07/09/2025 [place] Protocol Safety Checklist A moment of CARE was completed Sign In Sign in communication not applicable due to emergent procedure. Personnel directly involved with the procedure wore the appropriate PEE. Special Equipment: yes. Patient/surrogate stated/verified patient name, date of , relevant allergies, intended procedure. Provider Confirms: Relevant labs, photos, and/or imaging studies have been reviewed. Intended patient and procedure match the source document(s) (e.g. consent, associated studies [imaging, pathology]). Consent obtained and matches the intended procedure. Correct side/site marked and visible. Medications required for procedure verified. Fire risk assessed and interventions discussed: N/A. Correct implant(s) confirmed including size and side, expiration date(s) reviewed. Sign Out All specimens are correctly labeled and sent: N/A. All instruments, equipment, possible retained foreign bodies accounted for. Post-procedure POC communicated to patient or surrogate. Post-procedure POC communicated to patient's multidisciplinary team. Anesthesia Topical 4% Lidocaine on cotton swabs. Prep 5% Betadine. Injection Administration Medication: 2 mg triamcinolone acetonide (PF) 40 mg/mL ??Route: INTRAVITREAL, Site: Left Amount Wasted 38 mg wasted. Anterior Chamber Paracentesis No. Post Injection Evaluation Patient has at least hand motion vision. Post Procedure Medications None. Home Going Prescription None. Notes Dr. Amin gave the injection Authorizing ProviderResult TypeResult StatusPhoekelly Spencer MDOPHTHALMOLOGYEdited Result - Final * TRIESENCE INTRAVITREAL INJECTION OD (RIGHT EYE) (07/09/2025 12:53 PM EST) Narrative Yu Spencer MD - 07/09/2025 12:53 PM EST Date of Procedure 07/09/2025 [place] Protocol Safety Checklist A moment of CARE was completed Sign In Sign in communication not applicable due to emergent procedure. Personnel directly involved with the procedure wore the appropriate PEE. Special Equipment: yes. Patient/surrogate stated/verified patient name, date of , relevant allergies, intended procedure. Provider Confirms: Relevant labs, photos, and/or imaging studies have been reviewed. Intended patient and procedure match the source document(s) (e.g. consent, associated studies [imaging, pathology]). Consent obtained and matches the intended procedure. Correct side/site marked and visible. Medications required for procedure verified. Fire risk assessed and interventions discussed: N/A. expiration date(s) reviewed. Sign Out All specimens are correctly labeled and sent: N/A. All instruments, equipment, possible retained foreign bodies accounted for. Post-procedure POC communicated to patient or surrogate. Post-procedure POC communicated to patient's multidisciplinary team. Anesthesia 2-4 drops Tetracaine 0.5%, Topical 4% Lidocaine on cotton swabs. Prep 5% Betadine. Injection Administration Medication: 2 mg triamcinolone acetonide (PF) 40 mg/mL ??Route: INTRAVITREAL, Site: Right Amount Wasted 38 mg wasted. Anterior Chamber Paracentesis No. Post Injection Evaluation Patient has at least hand motion vision. Post Procedure Medications None. Home Going Prescription None. Notes Dr. Amin performed the injection Authorizing ProviderResult TypeResult Manuela Spencer MDOPHTHALMOLOGYEdited Result - Final * FUNDUS AUTOFLUORESCENCE PHOTO (FAF) OU (BOTH EYES) (07/09/2025 8:43 AM EST) Anatomical RegionLateralityModalityOther Narrative 07/09/2025 10:22 AM EST Date of Procedure 07/09/2025 Windshield Wiper Repairer Information Independent Producer: Miranda Witt. Start time: 8:43 AM Stop time: 8:43 AM Interpretation Right Eye Hyperfluorescence, Hypofluorescence. Left Eye Hyperfluorescence, Hypofluorescence. Authorizing ProviderResult TypeResult Manuela Spencer MDOPHTHALMOLOGYFinal Result * OCT MACULA CIRRUS OU (BOTH EYES) (07/09/2025 8:43 AM EST)Anatomical Region LateralityModalityOther Narrative 07/09/2025 10:22 AM EST Date of Procedure 07/09/2025 Windshield Wiper Repairer Information Independent Producer: Miranda Witt. Start time: 8:43 AM Stop time: 8:43 AM OCT Macula Interpretation Right Eye Findings include PED; Negative for Intraretinal fluid, Subretinal fluid. Left Eye Findings include PED; Negative for Intraretinal fluid, Subretinal fluid. Interval Change Right Eye Stable Left Eye Stable Authorizing ProviderResult TypeResult StatusPhoebe Johanna MDOPHTHALMOLOGYFinal Result documented in this encounter Visit Diagnoses Diagnosis Choroiditis of both eyes documented in this encounter Administered Medications Medication OrderMAR ActionAction DateDoseRateSite PHENYLephrine 2.5 % 1 drop (AK-DILATE, FREDDY-SYNEPHRINE) 1 drop, BOTH EYES, DIRECTED, Starting on Sat07/09/25 at 0830, Until Sat07/09/25 at 2028, Administer for dilation PROTECT FROM LIGHT, [facility] CLINIC MED ORDERS Indications:Choroiditis of both blzgCorxq19/21/2025 8:26 AM EST1 drop proparacaine 0.5 % 1 drop (ALCAINE) 1 drop, BOTH EYES, DIRECTED, Starting on Sat07/09/25 at 0830, Until Sat07/09/25 at 2028, Administer for pneumo tonometry, tonopen tonometry, or pachymetry. In the event of a proparacaine shortage, administer tetracaine 0.5% ophthalmic drops 1 drop in both eyes as directed for pneumo tonometry,tonopen tonometry, or pachymetry, [facility] CLINIC MED ORDERS Indications:Choroiditis of both pzyyVhqwx80/21/2025 8:26 AM EST1 drop triamcinolone acetonide (PF) 2 mg intraocular injection (TRIESENCE) 2 mg, ONCE, 1 dose, Starting on Sat07/09/25 at 1255, Until Sat07/09/25 at 1255 Indications:Choroiditis of both lxshJkrxp06/21/2025 12:55 PM EST2 mgLeft triamcinolone acetonide (PF) 2 mg intraocular injection (TRIESENCE) 2 mg, ONCE, 1 dose, Starting on Sat07/09/25 at 1255, Until Sat07/09/25 at 1255 Indications:Choroiditis of both itqdWhxfo29/21/2025 12:55 PM EST2 mgRight tropicamide 1 % 1 drop (MYDRIACYL) 1 drop, BOTH EYES, DIRECTED, Starting on Sat07/09/25 at 08, Until Sat07/09/25 at 2028, Administer for dilation, [facility] CLINIC MED ORDERS Indications:Choroiditis of both hpquHafbv10/21/2025 8:26 AM EST1 dropdocumented in this encounter
--- OUTSIDE RECORDS SUMMARY | 2025-07-14 10:45 | XMS_ITS | Encounter Summary ---
Author Organization [facility] Address [address] [place] [address] Care Team Providers Care Accounts Officer Name Role Phone Unavailable Primary Care Provider Unavailabl e Source Comments In the event this information is protected by the Federal Confidentiality of Alcohol and Drug AbusePatient Records regulations: The Federal rules restrict any use of the information to criminally investigate or prosecute any alcohol or drug abuse patient.[facility] Reason for Visit * ReasonCommentsRetinitis/choroiditis EvaluationOU Encounter Details DateTypeDepartmentCare Team (Latest Contact Info)Xoqbckaagfh08/26/2025 10:45 AM ESTOffice Visit [facility] Ophthalmology [address], [place] [address] Yu Spencer MD [address] [place] [address] Diagnostics, [facility] [address], [place] [address] Choroiditis of both eyes (Primary Dx); Choroidal neovascular membrane of both eyes; Exudative age-related macular degeneration, bilateral, with active choroidal neovascularization (HCC) Social History Tobacco UseTypesPacks/DayYears UsedDateSmoking Tobacco: FormerCigarettes Smokeless Tobacco: FormerArea Deprivation IndexAnswerDate RecordedNational Score (1-100), lower number is lower ixdo161707/09/2025State Score (1-10), lower number is lower [id number] from: https://www.neighborhoodatlas.[facility]/. Last address used for cngecbnky[address]07/[address]Sex and Gender InformationValueDate RecordedSex Assigned at BirthNot on fileLegal FfgLovm1704/06/2025 10:43 AM EDT Gender IdentityNot on fileSexual OrientationNot on filedocumented as of this encounter Patient Instructions * Patient Instructions* Yu Spencer MD - 07/14/2025 12:33 PM EST Post Injection Patient Information You had eye injection(s) today. These are your after injection instructions. Today: Preservative free artificial tears 1 drop every hour while awake as needed Tomorrow: Preservative free artificial tears 1 drop every 2 hours while awake as needed Care instructions after eye injections: Do not rub or touch your eye other than dabbing lightly with a tissue An qnbp-kqd-gdxzkvu pain reliever (i.e. Tylenol) can be used for mild soreness Use artificial tears/lubricating drops once an hour as needed for comfort (chill the tears in the refrigerator for more comfort). If you are using the tears more than 4 times a day they need to be the preservative free kind Warm or cool compresses are okay It is okay to shower and wash your face. No swimming pools or saunas for 24 hours COMMON symptoms after successful eye injections: Mild to moderate pain or irritation beginning the day of the injection. This should begin to improve the following day. ???Eyelash in the eye?? or jason/gritty sensation Tearing Mild floaters or bubbles in your vision - usually resolves after 1-2 days Bloody tears for 1-2 days after treatment Eye Redness Also known as subconjunctival hemorrhage This bruise can cover the entire white part of the eye and may last a few weeks CONCERNING symptoms after eye injections: Severe, constant pain Worsening pain after the first day Decreased vision Severe, constant floaters Curtain or veil in your vision New eye redness that was not there after the injection and covers the whole eye Please call the office immediately for any of the above listed concerning symptoms or with any other questions. If it is after hours please call [phone] which will give instructions on how to reach the eye doctor telephone sterilizer documented in this encounter Plan of Treatment DateTypeDepartmentCare Team (Latest Contact Info)Edyacksjquz93/06/2025 8:00 AM ESTOffice Visit Pulmonary Medicine [address] [place] [address] Kimani Tamayo MD [address], [place] [address] ifvowbh5207/28/2025 7:45 AM ESTOffice Visit [facility] Ophthalmology [address] [address] Yu Spencer MD [address] [place], [place] [id number] Diagnostics, [facility] [address] [address] Return in about 2 weeks (around 07/23/2025) for DILATe, OCT OU, AUTOFLUORESCENCE OU, visit and send to [facility] for lab work.09/17/2025 10:30 AM ESTOffice Visit OPHT Ophthalmology [address] [address] Yu Spencer MD [address] [place] [address] Diagnostics, [facility] [address] [address] Return in about 7 weeks (around 09/03/2025).NameTypePriorityAssociated Diagnoses Order ScheduleOCT MACULA CIRRUS OU (BOTH EYES)OPHT ImagingRoutine 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 1 Occurrences starting 07/14/2025 until 01/05/2027documented as of this encounter Procedures Procedure NamePriorityDate/TimeAssociated DiagnosisCommentsEYLEA (AFLIBERCEPT) 2MG INTRAVITREAL INJECTION OS (LEFT EYE)Caffnsy4807/14/2025 1:08 PM EST 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 EYLEA (AFLIBERCEPT) 2MG INTRAVITREAL INJECTION OD (RIGHT EYE)Bccmani8307/14/2025 1:08 PM EST Exudative age-related macular degeneration, bilateral, with active choroidal neovascularization (HCC) FUNDUS PHOTOS OU (BOTH EYES)Rpgehum1907/14/2025 11:18 AM EST 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 Personnel directly involved with the procedure wore the appropriate PEE. Special Equipment: N/A. Patient/surrogate stated/verified patient name, date of . Provider Confirms: Relevant labs, photos, and/or imaging [...] surrogate. Post-procedure POC communicated to patient's multidisciplinary team: N/A. Anesthesia 0.5 mL subconjunctival injection of 2% Lidocaine. Prep 5% Betadine. Injection Administration Medication: 2 mg aflibercept prefilled syringe 2 mg/0.05 mL ??Route: INTRAVITREAL, Site: Left Balance Wasted Residual medication less than 1 unit was discarded. Anterior Chamber Paracentesis No. Post Injection Evaluation Patient has at least hand motion vision. Post Procedure Medications None. Home Going Prescription None. Authorizing ProviderResult TypeResult StatusYu Spencer MDOPHTHALMOLOGYFinal Result * EYLEA (AFLIBERCEPT) 2MG INTRAVITREAL INJECTION OD (RIGHT EYE) (07/14/2025 1:08 PM EST) Narrative Eileen Walsh MD - 07/14/2025 1:08 PM EST Date of Procedure 07/14/2025 [place] Protocol Safety Checklist A moment of CARE was completed Sign In Sign in communication not applicable due to emergent procedure. Personnel directly involved with the procedure wore the appropriate PEE. Special Equipment: yes. Patient/surrogate stated/verified patient name, date of . Provider Confirms: Relevant labs, photos, and/or imaging [...] surrogate. Post-procedure POC communicated to patient's multidisciplinary team: N/A. Anesthesia 0.5 mL subconjunctival injection of 2% Lidocaine. Injection Administration Medication: 2 mg aflibercept prefilled syringe 2 mg/0.05 mL ??Route: INTRAVITREAL, Site: Right Balance Wasted Residual medication less than 1 unit was discarded. Anterior Chamber Paracentesis No. Post Injection Evaluation Patient has at least hand motion vision. Post Procedure Medications None. Home Going Prescription None. Authorizing ProviderResult TypeResult Manuela Spencer MDOPHTHALMOLOGYFinal Result * FUNDUS PHOTOS OU (BOTH EYES) (07/14/2025 11:18 AM EST)Anatomical Region LateralityModalityOther Narrative 07/14/2025 12:24 PM EST Date of Procedure 07/14/2025 Materials Management Supervisor Information Profile Grinder: florina Stop time: 11:17 AM NICKY Gould . Notes Obtained for future comparison Authorizing ProviderResult TypeResult Rasheed SOUZA-COPHTHALMOLOGY Final Result * OCT MACULA CIRRUS OU (BOTH EYES) (07/14/2025 11:16 AM EST)Anatomical Region LateralityModalityOther Narrative 07/14/2025 11:17 AM EST Date of Procedure 07/14/2025 Materials Management Supervisor Information Profile Grinder: JADE Start time: 11:03 AM Stop time: 11:16 AM OCT Macula Interpretation Right Eye Findings include PED; Negative for Intraretinal fluid, Subretinal fluid. Left Eye Findings include PED; Negative for Intraretinal fluid, Subretinal fluid. 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, bilateral, with active choroidal neovascularization (HCC) documented in this encounter Administered Medications Medication OrderMAR ActionAction DateDoseRateSite aflibercept intravitreal injection 2 mg/0.05 mL (EYLEA) 2 mg, ONCE, 1 dose, Starting on Sat07/14/25 at 1308, Until Sat07/14/25 at 1308 Indications:Exudative age-related macular degeneration, bilateral, with active choroidal neovascularization (HCC)Given07/14/2025 1:08 PM EST2 mgRight aflibercept intravitreal injection 2 mg/0.05 mL (EYLEA) 2 mg, ONCE, 1 dose, Starting on Sat07/14/25 at 1308, Until Sat07/14/25 at 1308 Indications:Choroiditis of both eyes,Choroidal neovascular membrane of both eyes Given07/14/2025 1:08 PM EST2 mgLeft fluorescein-benoxinate 0.3-0.4 % 1 drop (FLURESS) 1 drop, BOTH EYES, DIRECTED, Starting on Sat07/14/25 at 1100, Until Sat07/14/25 at 2259, Administer for applanation tonometry. In the event of a Fluress shortage, administer Shannan-Fluor 1 drop into both eyes as directed for applanation tonometry Indications:Choroiditis of both eyes,Choroidal neovascular membrane of both eyes Given07/14/2025 10:50 AM EST1 drop PHENYLephrine 2.5 % 1 drop (AK-DILATE, FREDDY-SYNEPHRINE) 1 drop, BOTH EYES, DIRECTED, Starting on Sat07/14/25 at 1100, Until Sat07/14/25 at 2259, Administer for dilation PROTECT FROM LIGHT Indications:Choroiditis of both eyes,Choroidal neovascular membrane of both eyes Given07/14/2025 10:55 AM EST1 drop tropicamide 1 % 1 drop (MYDRIACYL) 1 drop, BOTH EYES, DIRECTED, Starting on Sat07/14/25 at 1100, Until Sat07/14/25 at 2259, Administer for dilation Indications:Choroiditis of both eyes,Choroidal neovascular membrane of both eyes Given07/14/2025 10:55 AM EST1 dropdocumented in this encounter
--- OUTSIDE RECORDS SUMMARY | 2025-07-20 08:55 | XMS_ITS | Encounter Summary ---
Author Organization [facility] Address [address] [place] [address] Care Team Providers Care Dental Front Office Assistant Name Role Phone Unavailable Primary Care Provider Unavailabl e Source Comments In the event this information is protected by the Federal Confidentiality of Alcohol and Drug AbusePatient Records regulations: The Federal rules restrict any use of the information to criminally investigate or prosecute any alcohol or drug abuse patient.[facility] Encounter Details DateTypeDepartmentCare Team (Latest Contact Info)Oyggquafaas22/26/2025Travel Social History Tobacco UseTypesPacks/DayYears UsedDateSmoking Tobacco: FormerCigarettes Smokeless Tobacco: FormerArea Deprivation IndexAnswerDate RecordedNational Score (1-100), lower number is lower wxax486407/09/2025State Score (1-10), lower number is lower ywmv47109/08/2024Data from: https://www.neighborhoodatlas.medicine.[facility].edu/. Last address used for bedrhxrfgvi[address] [facility]07/09/2025Sex and Gender InformationValueDate RecordedSex Assigned at BirthNot on fileLegal QahTwtj0804/06/2025 10:43 AM EDT Gender IdentityNot on fileSexual OrientationNot on filedocumented as of this encounter Plan of Treatment DateTypeDepartmentCare Team (Latest Contact Info)Mgveebauxgr29/06/2025 8:00 AM ESTOffice Visit Pulmonary Medicine [address] [place], [place] [id number] Kimani Tamayo MD [address] [place] [address] hklmlum8107/28/2025 7:45 AM ESTOffice Visit OPHT Ophthalmology [address] [place] [address] Yu Spencer MD [address] [place] [address] Diagnostics, [facility] [address] [address] Return in about 2 weeks (around 07/23/2025) for DILATe, OCT OU, AUTOFLUORESCENCE OU, visit and send to [facility] for lab work.09/17/2025 10:30 AM ESTOffice Visit OPHT Ophthalmology [address] [address] Yu Spencer MD [address] [place], [place] [phone] Diagnostics, [facility] [address] [address] Return in about 7 weeks (around 09/03/2025).documented as of this encounter Visit Diagnoses Not on filedocumented in this encounter
--- OUTSIDE RECORDS SUMMARY | 2025-07-20 08:55 | XMS_ITS | Clinical Summary ---
Author Organization [facility] Address [address] [place] [address] Care Team Providers Care Director Career Services Name Role Phone Sterling, Brittany COLD SAW OPERATOR Unavailable [phone] Pa Vickers MD Primary Care Provider [phone] Allergies Active AllergyReactionsCriticalityNoted DateCommentsHydrocodone-Acetaminophen Hives05/29/20236301Qilmmktm61/11/2023 Other Reaction(s): hives Medications No known medications Active Problems ProblemNoted DateDiagnosed TryfSwymnswch24/09/2025Intracranial mass11/25/2024 Visual /09/2025Macular ytgznsohjhey34/09/2025ipolar 2 disorder 12/16/2023 Assessment & Plan (12/16/2023 6:02 PM EDT): Was previously on Wellbutrin. Not using it anymore. Symptoms controlled w/o meds. Attention deficit hyperactivity disorder (ADHD), predominantly inattentive type 12/16/2023 Assessment & Plan (12/16/2023 6:02 PM EDT): Was previously on Wellbutrin. Not using it anymore. Symptoms controlled w/o meds. Abdominal bloating with nolghe2812/16/2023 Assessment & Plan (02/17/2024 5:44 PM EDT): Abdominal pain and bloating, symptoms resolve with BM. Associated diarrhea. Improved a little with rifaximin. Irritable bowel syndrome with sckvlgia32/29/2024 Assessment & Plan (02/17/2024 5:43 PM EDT): [...] to new medications. Immunizations ImmunizationAdministration DatesNext DueDTaP, Zzqqcrraeqk40/05/2007,06/26/2002, 2001,2001,2001Hep B, Adolescent or Urghxazxa14/03/2002, 2001,2001HiB, /08/2002,2001IPV08/23/2006, 2001,2001,2001MMR08/23/2006,06/26/2002Meningococcal MCV4O 03/16/2019Meningococcal UBV8J1407/09/2013Pfizer Purple Cap SARS-CoV-2 Vaccination 08/08/2021,1Pneumococcal Conjugate PCV 7002/20/2002,2001, 2001Tdap109/08/20128565Jxhgknomt41/05/2002 Family History Medical HistoryRelationNameCommentsCancerMaternal GrandfatherSteve RansomeMM DiabetesMaternal GrandfatherSteve RansomeRelationNameStatusCommentsFatherAlive Maternal GrandfatherSteve RansomeMaternal GrandmotherAliveMotherAlive Social History Tobacco UseTypesPacks/DayYears UsedDateSmoking Tobacco: NeverPassive Smoke Exposure: NeverSmokeless Tobacco: Never Tobacco Cessation:Counseling Given: No Alcohol UseStandard Drinks/PolzWgkqjmcuGvm65 (1 standard drink = 0.6 oz pure alcohol)WEEKENDSPHQ-2AnswerDate RecordedPatient Health Questionnaire-2 Score0 02/17/2024Sex and Gender InformationValueDate RecordedSex Assigned at BirthNot on fileLegal LjtPcqj1810/31/2022 7:05 PM EDTGender IdentityNot on fileSexual OrientationNot on file Last Filed Vital Signs Vital SignReadingTime TakenCommentsBlood Xjvhnlpa564/8407 5:39 PM EDT Jfnpt063002/17/2024 5:39 PM EDT98% L4Sbsbyhnhoma47.4 ??C (97.5 ??F)02/17/2024 5:39 PM EDTRespiratory Rate--Oxygen Saturation--Inhaled Oxygen Concentration--Weight 75.8 kg (167 lb)02/17/2024 5:39 PM NBDGsxkgz854.8 cm (5' 10 )02/17/2024 5:39 PM EDTBody Mass Index23.9602/17/2024 5:39 PM EDT Plan of Treatment Not on file Insurance * Guarantor: Gael Weeks TypeRelation to PatientDate of BirthPhone Billing AddressPersonal/IvyjftW[address] [place] [address] Care Teams Team MemberRelationshipSpecialtyStart DateEnd Date Pa Vickers MD PCP - GeneralFamily Dmuekyft29/19/24 Miranda Sterling NP Nurse PractitionerFamily Rhogrpmc53/16/24
--- OUTSIDE RECORDS SUMMARY | 2025-07-20 08:55 | XMS_ITS | Encounter Summary ---
Author Organization [facility] Address [address] [place] [address] Care Team Providers Care Bobcat Driver/Labor Name Role Phone Unavailable Primary Care Provider Unavailabl e Source Comments In the event this information is protected by the Federal Confidentiality of Alcohol and Drug AbusePatient Records regulations: The Federal rules restrict any use of the information to criminally investigate or prosecute any alcohol or drug abuse patient.[facility] Reason for Visit * ReasonCommentsPatient Update Encounter Details DateTypeDepartmentCare Team (Latest Contact Info)Ulwespqhxlq03/24/2025Telephone Ophthalmology [address] [place] [phone] Yu Spencer MD [address] [place] [address] Patient Update Social History Tobacco UseTypesPacks/DayYears UsedDateSmoking Tobacco: FormerCigarettes Smokeless Tobacco: FormerArea Deprivation IndexAnswerDate RecordedNational Score (1-100), lower number is lower fzvd221207/09/2025State Score (1-10), lower number is lower emhy43009/08/2024Data from: https://www.neighborhoodatlas.medicine.[facility].edu/. Last address used for k[address]07/09/[address]25Sex and Gender InformationValueDate RecordedSex Assigned at BirthNot on fileLegal PwpLvqe0304/06/2025 10:43 AM EDT Gender IdentityNot on fileSexual OrientationNot on filedocumented as of this encounter Miscellaneous Notes * Telephone Encounter - Maryjo Rand - 07/13/2025 10:53 AM EST Patient's mother calling stating he is not going to be able to make it today for the appointment, however, will be able to come in at the offered 10:45 appointment for tomorrow. Patient and mother can be contacted at the following number, . * Telephone Encounter - Edda Brush - 07/13/2025 10:34 AM EST Spoke with mom offered appointment tomorrow with Holly Larios, which she accepted. Relayed that if he could come in there was a 3:15 for today. Waiting to hear back. * Telephone Encounter - Maryjo Rand - 07/12/2025 12:50 PM EST Leni from Dr. Blank office is calling regarding the below message. They would like to know if you can see the patient to make sure everything is okay with his eye. Says his eye is very red, and vision has decreased. Dr. Blank can be contacted at the following number, . * Telephone Encounter - Edda Brush - 07/12/2025 9:55 AM EST MONICA GREEN [[id number]] LV: 07/09/25 FV: 07/28/25 (Selena, mom) OD: Reports eye is all red and is having difficulty with his distance vision. Please advise. Yu Spencer MD filed at 07/09/2025 12:56 PM Status: Addendum Expand All Collapse All MD HPI: Here for 3 week f/u appt. No vision changes since last visit. Impression: 25 year old male Past Medical History PAST MEDICAL HISTORY Diagnosis Date Uveitis of [...] largest on the right appears to be calcified. There are some additional subpleural nodules at [...] PhD Vitreoretinal Surgery & Ocular Inflammatory Diseases [facility] documented in this encounter Plan of Treatment DateTypeDepartmentCare Team (Latest Contact Info)Klijccxqxml30/06/2025 8:00 AM ESTOffice Visit Pulmonary Medicine [address] [facility] [address] [place] [address] Kimani Tamayo MD [address] [address] zuligow0107/28/2025 7:45 AM ESTOffice Visit [facility] Ophthalmology [address] [address] Yu Spencer MD [address] [place] [address] Diagnostics, [facility] [address] [address] Return in about 2 weeks (around 07/23/2025) for DILATe, OCT OU, AUTOFLUORESCENCE OU, [facility].09/17/2025 10:30 AM ESTOffice Visit OPHT Ophthalmology [address] [address] Yu Spencer MD [address] [place] [address] Diagnostics, [facility] [address] [place] [phone] Return in about 7 weeks (around 09/03/2025).documented as of this encounter Visit Diagnoses Not on filedocumented in this encounter
--- OUTSIDE RECORDS SUMMARY | 2025-07-20 08:55 | XMS_ITS | Clinical Summary ---
Author Organization [facility] Address [id number] [place] [address] Care Team Providers Care Dumpster Operator Name Role Phone Unavailable Primary Care Provider Unavailabl e Social History Tobacco UseTypesPacks/DayYears UsedDateSmoking Tobacco: Never AssessedChildcare AnswerDate GelbeewoDkljrhkodQzufagh31/06/2019EmploymentAnswerDate Recorded HcqluncajbGopqldq72/06/2019Purpose - LifeAnswerDate RecordedPurpose and direction in bnyoOaixrrv32/10/2021Sex and Gender InformationValueDate Recorded Sex Assigned at BirthNot on fileLegal WmbRovz6203/22/2015 6:03 PM EDTGender IdentityNot on fileSexual OrientationNot on file Plan of Treatment Health MaintenanceDue DateLast DoneCommentsDepression Iligonqvi86/18/2013Tobacco Fctqbyfnr53/18/2013dult BMI Qxbkfpbay01/18/2019DTaP,Tdap and Td Vaccines (1 - Tdap)02/04/2020Influenza Iueqxpb1204/19/2025 Medical Devices Not on file
--- OUTSIDE RECORDS SUMMARY | 2025-07-20 08:55 | XMS_ITS | Clinical Summary ---
Author Organization [facility] Address [address] [place] [address] Care Team Providers Care Critical Care Clinical Nurse Specialist Name Role Phone Unavailable Primary Care Provider Unavailabl e Allergies Active AllergyReactionsCriticalityNoted DateCommentsHydrocodone-Acetaminophen Hives05/29/20231530AidepkroVijy61/11/2023 Other Reaction(s): hives Medications Hospital, Clinic, or Other Facility Administered MedicationOrdered DoseRoute FrequencyStart DateEnd DateStatus fluorescein-benoxinate 0.3-0.4 % 1 drop (FLURESS) Indications:Choroiditis of both eyes1 dropOUAS YKIHOOLW04Ended proparacaine 0.5 % 1 drop (ALCAINE) Indications:Choroiditis of both eyes1 dropOUAS STVQYRHV28Ended tropicamide 1 % 1 drop (MYDRIACYL) Indications:Choroiditis of both eyes1 dropOUAS WCOMFLEN38Ended PHENYLephrine 2.5 % 1 drop (AK-DILATE, FREDDY-SYNEPHRINE) Indications:Choroiditis of both eyes1 dropOUAS YEADONBD05/Ended triamcinolone acetonide (PF) 1 mg intraocular injection (TRIESENCE) Indications:Choroiditis of both eyes1 guYOYL31Discontinued triamcinolone acetonide (PF) 2 mg intraocular injection (TRIESENCE) Indications:Choroiditis of both eyes2 qwHCFD74Ended triamcinolone acetonide (PF) 2 mg intraocular injection (TRIESENCE) Indications:Choroiditis of both eyes2 ekNPGC66511/Ended fluorescein-benoxinate 0.3-0.4 % 1 drop (FLURESS) Indications:Choroiditis of both eyes,Choroidal neovascular membrane of both eyes 1 dropOUAS FNBEWWHU91/26/733384/Ended proparacaine 0.5 % 1 drop (ALCAINE) Indications:Choroiditis of both eyes,Choroidal neovascular membrane of both eyes 1 dropOUAS TMRRRHZY93/26/83839009/13/2024Ended tropicamide 1 % 1 drop (MYDRIACYL) Indications:Choroiditis of both eyes,Choroidal neovascular membrane of both eyes 1 dropOUAS LKSAQHXL14Ended PHENYLephrine 2.5 % 1 drop (AK-DILATE, FREDDY-SYNEPHRINE) Indications:Choroiditis of both eyes,Choroidal neovascular membrane of both eyes 1 dropOUAS SLUCYNUO06Ended aflibercept intravitreal injection 2 mg/0.05 mL (EYLEA) Indications:Exudative age-related macular degeneration, bilateral, with active choroidal neovascularization (HCC)2 ldAJZC185109/13/2024Ended aflibercept intravitreal injection 2 mg/0.05 mL (EYLEA) Indications:Choroiditis of both eyes,Choroidal neovascular membrane of both eyes 2 dbAIXP305109/13/2024Ended Active Problems ProblemNoted DateDiagnosed DateChoroidal neovascular membrane of both eyes 06/23/2025horoiditis of both eyes06/17/2025 Encounters DateTypeDepartmentCare WmjgOtrnhphqppu72/26/2025 10:45 AM ESTOffice Visit [facility] [address] [place] [address] Yu Spencer MD Diagnostics, Eye Tech And Choroiditis of both eyes (Primary Dx); Choroidal neovascular membrane of both eyes; Exudative age-related macular degeneration, bilateral, with active choroidal neovascularization (HCC)07/14/20256150Dqhzqr30/24/2025Telephone Pulmonary Medicine [address] [place] [address] Kimani Tamayo MD Appointment; Esjxck9107/12/2025Telephone Ophthalmology [address] [place] [address] Yu Spencer MD Patient Mjeltt1607/09/2025 8:00 AM ESTOffice Visit [facility] [address] [place] [address] Yu Spencer MD Diagnostics, Eye Tech And Choroiditis of both eyes07/02/2025Telephone Pulmonary Medicine [address] [place] [address] Gely Miller RN 07/01/2025Telephone Ophthalmology [address] [place] [address] Daisy Darling, RN Transitions Manager Rn - Other; Elkwxzh2206/22/2025 Get Medical Advice Ophthalmology [address] [place] [address] Yu Spencer MD Monica Rathelmasnider qjzulmm6606/18/2025 1:45 PM EDTOffice Visit [facility] Ophthalmology [address] [place] [address] Yu Spencer MD Diagnostics, Eye Tech And Choroiditis of both eyes (Primary Dx); Choroidal neovascular membrane of both eyes06/18/2025Travelfrom Last 3 Months Family History Medical HistoryRelationCommentsGlaucomaMaternal GrandfatherRelationStatus CommentsMaternal Grandfather Social History Tobacco UseTypesPacks/DayYears UsedDateSmoking Tobacco: FormerCigarettes Smokeless Tobacco: FormerArea Deprivation IndexAnswerDate RecordedNational Score (1-100), lower number is lower lvrc442507/09/2025State Score (1-10), lower number is lower igkt69909/08/2024Data from: https://www.neighborhoodatlas.medicine.[facility].edu/. Last address used for [address]07/09/[address]25Sex and Gender InformationValueDate RecordedSex Assigned at BirthNot on fileLegal LaeAykz6304/06/2025 10:43 AM EDT Gender IdentityNot on fileSexual OrientationNot on file Plan of Treatment DateTypeDepartmentCare Team (Latest Contact Info)Avywsxpeleg81/06/2025 8:00 AM ESTOffice Visit Pulmonary Medicine [address] [place] [address] Kimani Tamayo MD [address] [place] [address] dqsycdr0907/28/2025 7:45 AM ESTOffice Visit [facility] Ophthalmology [address] [address] Yu Spencer MD [address] [place] [address] Diagnostics, Eye Tech And [address] [address] Return in about 2 weeks (around 07/23/2025) for DILATe, OCT OU, AUTOFLUORESCENCE OU, visit and send to [facility] for lab work.09/17/2025 10:30 AM ESTOffice Visit [facility] Ophthalmology [address] [address] Yu Spencer MD [address] [place] [address] Diagnostics, Eye Tech And [address] [address] Return in about 7 weeks (around 09/03/2025).Health MaintenanceDue DateLast Done CommentsPeds To Adult Transition Initial Qoycdzgyxs19/18/2013Peds To Adult Transition Annual Nekegyoflu57/18/2015HPV Vaccine (1 - Male 3-dose series) 02/04/2016Anxiety Acaxkkxrs19/18/2019Depression Cyubrfect43/18/2019HIV Screening 2019Hepatitis C Wpidlvujh68/18/2019DTaP,Tdap,Td Vaccine (7 - Td or Tdap) 3109/08/2012, 08/23/2006, 06/26/2002, Additional history existsCovid-19 Vaccine ( - 2024- season)5110/09/2020, 07/18/2021Influenza Vaccine (#1)2025Hepatitis B BsbzrraPezhlavzz64/03/2002, 2001, 2001 Procedures Procedure NamePriorityDate/TimeAssociated DiagnosisCommentsEYLEA (AFLIBERCEPT) 2MG INTRAVITREAL INJECTION OS (LEFT EYE)Jmvnmwn1107/14/2025 1:08 PM EST 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 EYLEA (AFLIBERCEPT) 2MG INTRAVITREAL INJECTION OD (RIGHT EYE)Ojodzli3907/14/2025 1:08 PM EST Exudative age-related macular degeneration, bilateral, with active choroidal neovascularization (HCC) FUNDUS PHOTOS OU (BOTH EYES)Rxmkujo1707/14/2025 11:18 AM EST 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 OCT MACULA CIRRUS OU (BOTH EYES)Lxsrayu2307/14/2025 11:16 AM EST 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 EXTERNAL VLDZRYM8107/12/2025 8:07 AM EST TRIESENCE INTRAVITREAL INJECTION OS (LEFT EYE)Ixpuaom3007/09/2025 12:55 PM EST Choroiditis of both eyes TRIESENCE INTRAVITREAL INJECTION OD (RIGHT EYE)Bnhxzjo1207/09/2025 12:53 PM EST Choroiditis of both eyes SYPHILIS TREPONEMAL W/FQLOQJGfmqhwz02/21/2025 11:16 AM EST Choroiditis of both eyes FUNDUS AUTOFLUORESCENCE PHOTO (FAF) OU (BOTH EYES)Uirxdxn1107/09/2025 8:43 AM EST Choroiditis of both eyes OCT MACULA CIRRUS OU (BOTH EYES)Icltkzz6907/09/2025 8:43 AM EST Choroiditis of both eyes EXTERNAL BEETTTV3106/29/2025 10:[address] OUTSIDE CD DICOM KRIUEQ2106/23/2025 FA/ICG ANGIOGRAPHY OU(BOTH EYES),TRANSIT OD(RIGHT EYE)Ookxuaa9306/18/2025 3:05 PM EDT Choroiditis of both eyes OCT MACULA CIRRUS OU (BOTH EYES)Dhetujw6806/18/2025 3:03 PM EDT Choroiditis of both eyes OCT ANGIOGRAPHY OU (BOTH EYES)Bipdjgq2006/18/2025 3:03 PM EDT Choroiditis of both eyes from Last 3 Months Results * EYLEA (AFLIBERCEPT) 2MG INTRAVITREAL INJECTION OS (LEFT EYE) (07/14/2025 1:08 PM EST) Narrative Eileen Walsh MD - 07/14/2025 1:08 PM EST Date of Procedure 07/14/2025 [place] Protocol Safety Checklist A moment of CARE [...] Home Going Prescription None. Authorizing ProviderResult TypeResult StatusPhphyllis Spencer MDOPHTHALMOLOGYFinal Result * EYLEA (AFLIBERCEPT) 2MG INTRAVITREAL INJECTION OD (RIGHT EYE) (07/14/2025 1:08 PM EST) Narrative Eileen Walsh MD - 07/14/2025 1:08 PM EST Date of Procedure 07/14/2025 [place] Protocol Safety Checklist A moment of CARE [...] Home Going Prescription None. Authorizing ProviderResult TypeResult StatusPhphyllis Spencer MDOPHTHALMOLOGYFinal Result * FUNDUS PHOTOS OU (BOTH EYES) (07/14/2025 11:18 AM EST)Anatomical Region LateralityModalityOther Narrative 07/14/2025 12:24 PM EST Date of Procedure 07/14/2025 Decision Support Manager Information Mortgage Branch Manager: af Stop time: 11:17 AM NICKY Gould . Notes Obtained for future comparison Authorizing ProviderResult TypeResult Rasheed SOUZA-COPHTHALMOLOGY Final Result * OCT MACULA CIRRUS OU (BOTH EYES) (07/14/2025 11:16 AM EST)Anatomical Region LateralityModalityOther Narrative 07/14/2025 11:17 AM EST Date of Procedure 07/14/2025 Decision Support Manager Information Mortgage Branch Manager: JADE Start time: 11:03 AM Stop time: 11:16 AM OCT Macula Interpretation Right Eye Findings include PED; Negative for Intraretinal fluid, Subretinal fluid. Left Eye Findings include PED; Negative for Intraretinal fluid, Subretinal fluid. Interval Change Right Eye Better Left Eye Stable Authorizing ProviderResult TypeResult Rasheed SOUZA-COPHTHALMOLOGY Edited Result - Final * EXTERNAL IMAGING (07/12/2025 8:07 AM EST)Anatomical RegionLateralityModality Other Narrative Authorizing ProviderResult TypeResult StatusExternal Provider PA-CRADIOLOGYFinal Result * TRIESENCE INTRAVITREAL INJECTION OS (LEFT EYE) (07/09/2025 12:55 PM EST) Narrative Yu Spencer MD - 07/09/2025 12:55 PM EST Date of Procedure 07/09/2025 [place] Protocol Safety Checklist A moment of CARE [...] Amin gave the injection Authorizing ProviderResult TypeResult StatusYu Spencer MDOPHTHALMOLOGYEdited Result - Final * TRIESENCE INTRAVITREAL INJECTION OD (RIGHT EYE) (07/09/2025 12:53 PM EST) Yu Jackson MD - 07/09/2025 12:53 PM EST Date of Procedure 07/09/2025 [place] Protocol Safety Checklist A moment of CARE [...] Manuela Spencer MDOPHTHALMOLOGYEdited Result - Final * SYPHILIS TREPONEMAL W/REFLEX (07/09/2025 11:16 AM EST)ComponentValueRef Range Test MethodAnalysis TimePerformed AtPathologist SignatureSyphilis Treponemal RpttanXpgfczpobbpQhnsdvjhexj20/21/2025 5:32 PM ESTPROTESTANT HOSPITAL LAB Syphilis InterpretationCannot exclude recent Treponemal infection if specimen collected within 7-10 days after appearance of suspect lesions or 2-3 weeks after an exposure. Clinical correlation is required.07/09/2025 5:32 PM EST [facility] LABSpecimen (Source)Anatomical Location / Laterality Collection Method / VolumeCollection TimeReceived TimeBloodBLOOD SPECIMEN / UnknownVenipuncture / Xithzvi5107/09/2025 11:16 AM EST07/09/2025 11:16 AM EST Narrative Authorizing ProviderResult TypeResult Manuela Spencer MDLABORATORYFinal Result Performing OrganizationAddressCity/State/[facility] CodePhone Number [facility] [address] * FUNDUS AUTOFLUORESCENCE PHOTO (FAF) OU (BOTH EYES) (07/09/2025 8:43 AM EST) Anatomical RegionLateralityModalityOther Narrative 07/09/2025 10:22 AM EST Date of Procedure 07/09/2025 Decision Support Manager Information Mortgage Branch Manager: Miranda Witt. Start time: 8:43 AM Stop time: 8:43 AM Interpretation Right Eye Hyperfluorescence, Hypofluorescence. Left Eye Hyperfluorescence, Hypofluorescence. Authorizing ProviderResult TypeResult Manuela Spencer MDOPHTHALMOLOGYFinal Result * OCT MACULA CIRRUS OU (BOTH EYES) (07/09/2025 8:43 AM EST)Anatomical Region LateralityModalityOther Narrative 07/09/2025 10:22 AM EST Date of Procedure 07/09/2025 Decision Support Manager Information Mortgage Branch Manager: Miranda Witt. Start time: 8:43 AM Stop time: 8:43 AM OCT Macula Interpretation Right Eye Findings include PED; Negative for Intraretinal fluid, Subretinal fluid. Left Eye Findings include PED; Negative for Intraretinal fluid, Subretinal fluid. Interval Change Right Eye Stable Left Eye Stable Authorizing ProviderResult TypeResult Manuela Spencer MDOPHTHALMOLOGYFinal Result * EXTERNAL IMAGING (06/29/2025 10:05 AM EST)Anatomical RegionLateralityModality Other Narrative Authorizing ProviderResult TypeResult StatusExternal Provider PA-CRADIOLOGYFinal Result * CT-CT CHEST WO CON IMPORT (06/23/2025)Anatomical RegionLateralityModalityOther Specimen (Source)Anatomical Location / LateralityCollection Method / Volume Collection TimeReceived Time06/23/2025 Narrative 06/30/2025 9:48 PM EST Images were obtained outside of [facility] Procedure Note Provider, [facility] [place] - 06/30/2025 Images were obtained outside of [facility] Authorizing ProviderResult TypeResult StatusCcf ProviderRADIOLOGYFinal Result * FA/ICG ANGIOGRAPHY OU(BOTH EYES),TRANSIT OD(RIGHT EYE) (06/18/2025 3:05 PM EDT)Anatomical RegionLateralityModalityOther Narrative 06/18/2025 4:45 PM EDT Date of Procedure 06/18/2025 Decision Support Manager Information Mortgage Branch Manager: ABHILASH Start time: 2:26 PM Stop time: [...] with mild leakage/staining LE Authorizing ProviderResult TypeResult StatusYu Spencer MDOPHTHALMOLOGYFinal Result * OCT MACULA CIRRUS OU (BOTH EYES) (06/18/2025 3:03 PM EDT)Anatomical Region LateralityModalityOther Narrative 06/18/2025 4:46 PM EDT Date of Procedure 06/18/2025 Decision Support Manager Information Mortgage Branch Manager: ABHILASH Start time: 2:26 PM Stop time: [...] 4:45 PM EDT Date of Procedure 06/18/2025 Decision Support Manager Information Mortgage Branch Manager: ABHILASH Start time: 2:26 PM Stop time: 3:03 PM Interpretation Right Eye Findings include CNV. Left Eye Findings include CNV. Authorizing ProviderResult TypeResult Manuela Spencer MDOPHTHALMOLOGYFinal Result from Last 3 Months Insurance
--- OUTSIDE RECORDS SUMMARY | 2025-07-20 08:55 | XMS_ITS | Encounter Summary ---
Author Organization [facility] Address [address] [place] [address] Care Team Providers Care Motor Equipment Commanding Officer Name Role Phone Unavailable Primary Care Provider Unavailabl e Source Comments In the event this information is protected by the Federal Confidentiality of Alcohol and Drug AbusePatient Records regulations: The Federal rules restrict any use of the information to criminally investigate or prosecute any alcohol or drug abuse patient.[facility] Reason for Visit * ReasonCommentsAppointmentOrders Encounter Details DateTypeDepartmentCare Team (Latest Contact Info)Yqtalwhgpuy35/24/2025Telephone Pulmonary Medicine [address] [place] [phone] Kimani Tamayo MD [address] [place] [phone] Appointment; Orders Social History Tobacco UseTypesPacks/DayYears UsedDateSmoking Tobacco: FormerCigarettes Smokeless Tobacco: FormerArea Deprivation IndexAnswerDate RecordedNational Score (1-100), lower number is lower kfxv034107/09/2025State Score (1-10), lower number is lower fzmd35009/08/2024Data from: https://www.neighborhoodatlas.medicine.[facility].edu/. Last address used for [address]07/09/[address]25Sex and Gender InformationValueDate RecordedSex Assigned at BirthNot on fileLegal ZjeMqli5304/06/2025 10:43 AM EDT Gender IdentityNot on fileSexual OrientationNot on filedocumented as of this encounter Miscellaneous Notes * Telephone Encounter - Cinthya Woodard - 07/12/2025 10:22 AM EST Clinical Question Who: Who is calling? Mother Who are they calling about? Patient What: Mother (Selena) of pt would like to reschedule office appt to 07/24/25 @ 8 am at [place]. Selena would like to get testing done locally before pt meets w/Dr. Lyles. Please fax PFT orders to Selena at [phone]. Selena will fax the PFT Results to Dr. Lyles once completed. documented in this encounter Plan of Treatment DateTypeDepartmentCare Team (Latest Contact Info)Inquyznxzsr75/06/2025 8:00 AM ESTOffice Visit Pulmonary Medicine [address] [facility] [address] [place], [place] [id number] Kimani Tamayo MD [address], [place] [address] jysjhby7607/28/2025 7:45 AM ESTOffice Visit [facility] Ophthalmology [address] [address] Yu Spencer MD [address] [place], [place] [phone] Diagnostics, Eye Tech And [address] [address] Return in about 2 weeks (around 07/23/2025) for DILATe, OCT OU, AUTOFLUORESCENCE OU, visit and send to [facility] for lab work.09/17/2025 10:30 AM ESTOffice Visit OPHT Ophthalmology [address] [address] Yu Spencer MD [address] [place] [address] Diagnostics, Eye Tech And [address] [address] Return in about 7 weeks (around 09/03/2025).documented as of this encounter Visit Diagnoses Not on filedocumented in this encounter
[2025-07-20 09:02] LABS: Hemoglobin 15.3 g/dL (14.0-18.0)
[2025-07-20] MEDS: ALBUTEROL SULFATE 2.5 MG/3 ML VIAL NEB IH (09:27)
== END 2025-07-20 08:53 | disposition home or self-care (01) ==
LOC: CARD 08:52
PROVIDERS: PCP Family Medicine; Visit Provider Family Medicine
DX: D86.9 Sarcoidosis, unspecified (principal)
CPT/HCPCS: 36415; 85018; 94060; 94726; 94729